=== PATIENT | female | born 1985 | race Caucasian/White ===

== ENCOUNTER 2017-07-14 15:42 | Emergency (ER) | payer SELFPAY ==
[~2017-07-14] VITALS: Ht 172.7 cm; Wt 81.8 kg
[~2017-07-14 15:42] MED LIST: BACTRIM DS 8001 TAB PO; BACTROBAN 22GM22 GM NAS; CEPHALEXIN500 M1 PO; CLEOCIN HC150 MG/CAP PO; CLEOCIN VAGINAL40 GM VG; DOXYCYCLINE 10100 MG PO; EPI EZ PEN1 MG/ML IM; FLAGYL500 MG PO; HIBICLENS TP; LORTAB 5/500 501 TAB PO; MOTRIN 600600 MG/TAB PO; NAPROSYN375 MG PO; NAPROSYN500 MG PO; NO HOME MEDICATIONS; NORCO 325 MG-51 TAB PO; NORCO 325 MG-7.1 TAB PO; NUVESSA1.3% VG; PEPCID AC 10MG10 MG; PREDNISONE10 MG PO; PRENATAL VITAMI1 TA5 PO; SPRINTEC 35 MCG1 TAB PO; WELLBUTRIN PO; ZITHROMAX Z PA250 MG PO
[2017-07-14 15:44] VITALS: BP 140/95; TEMP 98.2
[2017-07-14] MEDS ORDERED: AMOXICILLIN 8751 TAB PO (16:04)
[2017-07-14] MEDS ORDERED: ULTRAM 50MG TAB50 MG PO (16:04)
[2017-07-14 16:35] VITALS: PULSE 97
== END 2017-07-14 16:35 | disposition home or self-care (01) ==
LOC: COL.ER 15:42
DX: K04.7 Periapical abscess without sinus (principal); F17.210 Nicotine dependence, cigarettes, uncomplicated
CPT/HCPCS: J1885

== ENCOUNTER 2018-01-22 13:59 | Emergency (ER) | payer SELFPAY ==
[~2018-01-22] VITALS: Ht 172.7 cm; Wt 90.9 kg
[~2018-01-22 13:59] MED LIST changes: +AMOXICILLIN 8751 TAB PO; +ULTRAM 50MG TAB50 MG PO
[2018-01-22 14:09] VITALS: BP 135/89; PULSE 100; TEMP 97.7
== END 2018-01-22 15:55 | disposition left against medical advice (07) ==
LOC: COL.ER 13:59
DX: M25.511 Pain in right shoulder (principal)

== ENCOUNTER 2018-03-01 15:06 | Emergency (ER) | payer SELFPAY ==
[~2018-03-01] VITALS: Ht 172.7 cm; Wt 84.1 kg
[2018-03-01 15:08] VITALS: BP 144/93; TEMP 98.5
[2018-03-01 16:02] VITALS: PULSE 96
== END 2018-03-01 16:03 | disposition home or self-care (01) ==
LOC: COL.ER 15:06
DX: S93.402A Sprain of unspecified ligament of left ankle, initial encounter (principal); F17.210 Nicotine dependence, cigarettes, uncomplicated; X58.XXXA Exposure to other specified factors, initial encounter

== ENCOUNTER 2020-12-01 16:56 | Emergency (ER) | payer BC ==
[~2020-12-01] VITALS: Ht 172.7 cm; Wt 86.4 kg
[2020-12-01 17:04] VITALS: TEMP 99
[2020-12-01 18:14] LABS: COLLECTION METHOD CATHETER
[2020-12-01 18:27] LABS: BASO # 0.2 (0.0-0.2); BASO % 1.2 % (0.0-2.0); EOS % 0.3 % (0-4.0); GRAN # 11.3 (1.4-6.5); GRAN % 77.4 % (42.2-75.2); HEMATOCRIT 39.1 % (37.0-47.0); HEMOGLOBIN 12.3 g/dl (12.5-16.0); LYMPH # 1.8 (1.2-3.4); LYMPH % 12.2 % (20.0-51.0); MEAN CELL VOLUME 88 fl (80.0-100.0); MEAN CORPUSCULAR HEMOGLOBIN 28 pg (27.0-31.0); MEAN CORPUSCULAR HGB CONC 32 g/dl (33.0-37.0); MEAN PLATELET VOLUME 9.8 fl (7.4-10.4); MONO # 1.2 (0.1-0.6); MONO % 7.9 % (1.7-9.3); PLATELET COUNT 206 K/mm3 (130-400); RED BLOOD COUNT 4.46 M/mm3 (4.10-5.30)
[2020-12-01 18:31] LABS: ALBUMIN 4.5 gm/dL (3.5-5.0); CALCIUM 9.1 mg/dL (8.4-10.2); CREATININE, serum 0.73 (0.52-1.25); POTASSIUM 3.3 mmol/L (3.4-5.0); TOTAL PROTEIN 9.9 gm/dL (6.4-8.2)
[2020-12-01 18:36] LABS: MUCOUS Present /lpf; PH 6 (5-8); SQUAMOUS EPITHELIAL 0-2 /hpf; URINE APPEARANCE Hazy; URINE BACTERIA Rare /hpf; URINE BILIRUBIN Negative (NEGATIVE); URINE BLOOD 1+ (NEGATIVE); URINE COLOR Amber; URINE GLUCOSE Negative (NEGATIVE); URINE KETONE Negative (NEGATIVE); URINE LEUKOCYTE ESTERASE Negative (NEGATIVE); URINE NITRATE Negative (NEGATIVE); URINE PROTEIN(semi-quant) 2+ (NEGATIVE); URINE RBC 20-50 /hpf; URINE UROBILINOGEN >=4.0 mg/dL (NEGATIVE)
[2020-12-01] MEDS ORDERED: LIBRIUM 25M25 MG/CAP PO (19:54)
[2020-12-01] MEDS ORDERED: CEPHALEXIN500 M1 PO (19:56)
[2020-12-01 20:23] VITALS: BP 133/98; PULSE 117
--- NOTE | 2020-12-03 10:49 | NUR ---
pitch worker left message for patient to call regarding obtaining substance abuse treatment/detox options.
== END 2020-12-01 20:42 | disposition home or self-care (01) ==
LOC: COL.ER 16:56
PROVIDERS: Physician Assistant
DX: F10.129 Alcohol abuse with intoxication, unspecified (principal); L03.90 Cellulitis, unspecified
CPT/HCPCS: J2060; J7030

== ENCOUNTER 2020-12-03 18:31 | Inpatient (IN) | payer BC ==
[~2020-12-03] VITALS: Ht 172.7 cm; Wt 85.9 kg
[~2020-12-03 18:31] MED LIST changes: +LIBRIUM 25M25 MG/CAP PO
[2020-12-03 20:26] LABS: BASO # 0.1 (0.0-0.2); BASO % 0.9 % (0.0-2.0); EOS % 0.2 % (0-4.0); GRAN # 8.1 (1.4-6.5); GRAN % 74.5 % (42.2-75.2); HEMOGLOBIN 10.7 g/dl (12.5-16.0); LYMPH # 1.5 (1.2-3.4); LYMPH % 13.4 % (20.0-51.0); MEAN CELL VOLUME 85 fl (80.0-100.0); MEAN CORPUSCULAR HEMOGLOBIN 28 pg (27.0-31.0); MEAN CORPUSCULAR HGB CONC 33 g/dl (33.0-37.0); MEAN PLATELET VOLUME 9.8 fl (7.4-10.4); MONO # 1.1 (0.1-0.6); MONO % 10.4 % (1.7-9.3); PLATELET COUNT 114 K/mm3 (130-400); RED BLOOD COUNT 3.83 M/mm3 (4.10-5.30); REDCELL DISTRIBUTION WIDTH-CV 16.5 % (11.5-14.5)
[2020-12-03 20:28] LABS: HEMATOCRIT 32.5 % (37.0-47.0)
[2020-12-03 20:49] LABS: ALBUMIN 4.1 gm/dL (3.5-5.0); BILIRUBIN,TOTAL 2.6 mg/dL (0.0-1.0); CREATININE, serum 0.67 (0.52-1.25); MAGNESIUM 1.5 mg/dL (1.6-2.3); TOTAL PROTEIN 8.6 gm/dL (6.4-8.2)
[2020-12-03 20:51] LABS: POTASSIUM 2.7 mmol/L (3.4-5.0)
[2020-12-03 21:12] LABS: ARTERIAL BLD GAS O2 SATURATION 95.6 % (92-100); ARTERIAL BLD GAS TCO2 CT 30.3; ARTERIAL BLOOD GAS BASE EXCESS 5.9 (-2-2); ARTERIAL BLOOD GAS HCO3 29.2 meq/L (22-26); ARTERIAL BLOOD GAS PCO2 37.2 mmHg (35-45); ARTERIAL BLOOD GAS PO2 73.5 mmHg (80-100); ARTERIAL BLOOD GAS pH 7.51 (7.35-7.45)
[2020-12-04] VITALS (8 sets, daily range): BP systolic 110–143; BP diastolic 64–87; PULSE 108–118; TEMP 98.1–98.8
[2020-12-04 02:01] LABS: CALCIUM 8.1 mg/dL (8.4-10.2); CREATININE, serum 0.62 (0.52-1.25); MAGNESIUM 2.2 mg/dL (1.6-2.3); POTASSIUM 3.1 mmol/L (3.4-5.0)
[2020-12-04 07:38] LABS: BASO # 0.1 (0.0-0.2); EOS # 0.1 (0.0-0.7); EOS % 1.2 % (0-4.0); GRAN # 6.4 (1.4-6.5); HEMOGLOBIN 10.2 g/dl (12.5-16.0); LYMPH # 1.6 (1.2-3.4); MEAN CELL VOLUME 89 fl (80.0-100.0); MEAN CORPUSCULAR HEMOGLOBIN 27 pg (27.0-31.0); MEAN CORPUSCULAR HGB CONC 30 g/dl (33.0-37.0); MEAN PLATELET VOLUME 10.8 fl (7.4-10.4); MONO # 0.8 (0.1-0.6); MONO % 9.2 % (1.7-9.3); PLATELET COUNT 108 K/mm3 (130-400); RED BLOOD COUNT 3.75 M/mm3 (4.10-5.30); REDCELL DISTRIBUTION WIDTH-CV 16.9 % (11.5-14.5)
[2020-12-04 07:39] LABS: HEMATOCRIT 33.5 % (37.0-47.0)
[2020-12-04 07:46] LABS: CREATININE, serum 0.64 (0.52-1.25); POTASSIUM 3.1 mmol/L (3.4-5.0)
[2020-12-04 08:22] LABS: INR 1.5 (0.8-3.0); PROTHROMBIN TIME 16.3 SECONDS (9.7-12.8)
[2020-12-04 08:25] LABS: ALBUMIN 3.4 gm/dL (3.5-5.0); BILIRUBIN UNCONJUGATED 1.5 mg/dL (0.0-1.1); BILIRUBIN,DIRECT 1.3 mg/dL (0.0-0.4); BILIRUBIN,TOTAL 2.8 mg/dL (0.0-1.0); TOTAL PROTEIN 7.6 gm/dL (6.4-8.2)
[2020-12-04 15:49] LABS: FOLATE (FOLIC ACID) 15.7 ng/mL (7.0-31.4)
[2020-12-04] MEDS ORDERED: BENADRYL25 M2 PO (16:05)
[2020-12-04] MEDS ORDERED: MAG-OX 400400 MG/TAB PO (16:07)
[2020-12-04] MEDS ORDERED: PROTONIX 40MG T40 MG PO (16:08)
[2020-12-04] MEDS ORDERED: ANTI-FUNGAL1% TP (16:09)
[2020-12-04] MEDS ORDERED: LIBRIUM 25M25 MG/CAP PO (16:16)
[2020-12-05 00:43] VITALS: BP 120/78; PULSE 104; TEMP 98.7
[2020-12-05 05:27] VITALS: BP 137/92; PULSE 108; PULSE 117; TEMP 98.9
[2020-12-05 07:02] VITALS: BP 129/89; PULSE 114; TEMP 98.2
[2020-12-05 07:37] LABS: BASO # 0.1 (0.0-0.2); BASO % 1.2 % (0.0-2.0); EOS # 0.2 (0.0-0.7); EOS % 2.6 % (0-4.0); GRAN # 5.8 (1.4-6.5); GRAN % 68.7 % (42.2-75.2); HEMOGLOBIN 10.5 g/dl (12.5-16.0); LYMPH # 1.4 (1.2-3.4); LYMPH % 15.9 % (20.0-51.0); MEAN CELL VOLUME 89 fl (80.0-100.0); MEAN CORPUSCULAR HEMOGLOBIN 27 pg (27.0-31.0); MEAN CORPUSCULAR HGB CONC 31 g/dl (33.0-37.0); MEAN PLATELET VOLUME 10.1 fl (7.4-10.4); MONO # 0.9 (0.1-0.6); MONO % 10.7 % (1.7-9.3); PLATELET COUNT 112 K/mm3 (130-400); RED BLOOD COUNT 3.86 M/mm3 (4.10-5.30); REDCELL DISTRIBUTION WIDTH-CV 16.9 % (11.5-14.5)
[2020-12-05 07:59] LABS: IRON,SERUM 45 ug/dL (35-150)
[2020-12-05 08:00] LABS: HEMATOCRIT 34.3 % (37.0-47.0)
[2020-12-05 08:09] LABS: TOTAL IRON BINDING CAPACITY 341 ug/dL (265-497)
[2020-12-05 08:48] LABS: ALBUMIN 3.5 gm/dL (3.5-5.0); BILIRUBIN,TOTAL 3.4 mg/dL (0.0-1.0); CALCIUM 8.5 mg/dL (8.4-10.2); CREATININE, serum 0.67 (0.52-1.25); MAGNESIUM 2.1 mg/dL (1.6-2.3); POTASSIUM 3.8 mmol/L (3.4-5.0); TOTAL PROTEIN 7.7 gm/dL (6.4-8.2)
[2020-12-06 04:30] LABS: CERULOPLASMIN 35 mg/dL (20-60)
[2020-12-06 12:12] LABS: ANA SCREEN with REFLEX Negative (Negative)
[2020-12-08 13:47] LABS: ANTISMOOTH MUSCLE ANTIBODY Negative (Negative)
== END 2020-12-05 08:50 | DRG 897 ==
LOC: COL.ER 18:31 → SURG 22:25
PROVIDERS: Emergency Medicine; Internal Medicine Gastroenterology; Physician Assistant; Student in an Organized Health Care Education/Training Program; ADMIT Hospitalist
DX: F10.139 Alcohol abuse with withdrawal, unspecified (principal); K92.1 Melena; E87.2 Acidosis; L03.116 Cellulitis of left lower limb; L03.115 Cellulitis of right lower limb; F17.210 Nicotine dependence, cigarettes, uncomplicated; E87.6 Hypokalemia; E83.42 Hypomagnesemia; R00.0 Tachycardia, unspecified; D64.9 Anemia, unspecified; K70.10 Alcoholic hepatitis without ascites; K70.30 Alcoholic cirrhosis of liver without ascites; R19.7 Diarrhea, unspecified; K21.9 Gastro-esophageal reflux disease without esophagitis; L29.9 Pruritus, unspecified; D69.6 Thrombocytopenia, unspecified; Z20.822 Contact with and (suspected) exposure to COVID-19
CPT/HCPCS: 99223-AI; 99233-AI; 99239; C9113; J2060; J2405; J2543; J2550; J3370; J3475; J3480; J7030; J7050

== ENCOUNTER 2020-12-31 17:58 | Emergency (ER) | payer BC ==
[~2020-12-31] VITALS: Ht 172.7 cm; Wt 80.0 kg
[~2020-12-31 17:58] MED LIST changes: +ANTI-FUNGAL1% TP; +BENADRYL25 M2 PO; +MAG-OX 400400 MG/TAB PO; +PROTONIX 40MG T40 MG PO
[2020-12-31 18:12] VITALS: TEMP 98.7
[2020-12-31 19:17] LABS: BASO % 0.5 % (0.0-2.0); EOS # 0.1 (0.0-0.7); EOS % 0.8 % (0-4.0); GRAN # 3.7 (1.4-6.5); GRAN % 56.5 % (42.2-75.2); HEMOGLOBIN 11.1 g/dl (12.5-16.0); LYMPH % 30.5 % (20.0-51.0); MEAN CELL VOLUME 86 fl (80.0-100.0); MEAN CORPUSCULAR HEMOGLOBIN 27 pg (27.0-31.0); MEAN CORPUSCULAR HGB CONC 31 g/dl (33.0-37.0); MEAN PLATELET VOLUME 10.6 fl (7.4-10.4); MONO # 0.8 (0.1-0.6); MONO % 11.5 % (1.7-9.3); PLATELET COUNT 192 K/mm3 (130-400); RED BLOOD COUNT 4.17 M/mm3 (4.10-5.30); REDCELL DISTRIBUTION WIDTH-CV 16.9 % (11.5-14.5)
[2020-12-31 19:19] LABS: ALANINE AMINOTRANSFERASE 44 U/L (4-34); ALBUMIN 3.7 gm/dL (3.5-5.0); ALKALINE PHOSPHATASE 161 U/L (50-136); ANION GAP 10 mmol/L (7-16); AST,SGOT 82 U/L (15-37); BILIRUBIN,TOTAL 1.1 mg/dL (0.0-1.0); BLOOD UREA NITROGEN 9 mg/dL (7-17); CALCIUM 8.3 mg/dL (8.4-10.2); CARBON DIOXIDE 22 mmol/L (22-30); CHLORIDE 104 mmol/L (98-107); CREATININE, serum 0.64 (0.52-1.25); GLUCOSE 102 mg/dL (74-106); POTASSIUM 3.8 mmol/L (3.4-5.0); SODIUM 137 mmol/L (137-145)
[2020-12-31 19:38] LABS: TROPONIN-I < 0.012 ng/mL (0.000-0.035)
[2020-12-31] MEDS ORDERED: MEDROL 4MG DOSPA4 MG PO (19:59)
[2020-12-31 20:48] VITALS: BP 122/83; PULSE 92
== END 2020-12-31 20:50 | disposition home or self-care (01) ==
LOC: COL.ER 17:58
PROVIDERS: Physician Assistant
DX: U07.1 COVID-19 (principal); J12.82 Pneumonia due to coronavirus disease 2019; F17.210 Nicotine dependence, cigarettes, uncomplicated
CPT/HCPCS: J1885; J7030

== ENCOUNTER 2021-08-07 11:03 | Emergency (ER) | payer SELFPAY ==
[~2021-08-07] VITALS: Ht 172.7 cm; Wt 81.4 kg
[~2021-08-07 11:03] MED LIST changes: +MEDROL 4MG DOSPA4 MG PO
[2021-08-07 11:20] VITALS: TEMP 98.5
[2021-08-07 12:30] LABS: BASO # 0.2 K/mm3 (0.0-0.2); BASO % 2.1 % (0.0-2.0); EOS # 0.1 K/mm3 (0.0-0.7); EOS % 1.4 % (0-4.0); GRAN # 5.2 K/mm3 (1.4-6.5); GRAN % 65.3 % (42.2-75.2); HEMATOCRIT 32.2 % (37.0-47.0); HEMOGLOBIN 10.6 g/dl (12.5-16.0); LYMPH # 1.4 K/mm3 (1.2-3.4); LYMPH % 17.6 % (20.0-51.0); MEAN CELL VOLUME 83 fl (80.0-100.0); MEAN CORPUSCULAR HEMOGLOBIN 27 pg (27.0-31.0); MEAN CORPUSCULAR HGB CONC 33 g/dl (33.0-37.0); MEAN PLATELET VOLUME 9.6 fl (7.4-10.4); MONO % 12.8 % (1.7-9.3); PLATELET COUNT 111 K/mm3 (130-400); RED BLOOD COUNT 3.87 M/mm3 (4.10-5.30); REDCELL DISTRIBUTION WIDTH-CV 21.5 % (11.5-14.5)
[2021-08-07 12:33] LABS: COLLECTION METHOD CLEAN CATCH
[2021-08-07 12:40] LABS: ALBUMIN 2.7 gm/dL (3.5-5.0); CREATININE, serum 0.84 mg/dL (0.57-1.11); TOTAL PROTEIN 9.3 gm/dL (6.2-8.1)
[2021-08-07 12:43] LABS: MUCOUS Present /lpf; PH 5 (5-8); URINE APPEARANCE Cloudy; URINE BACTERIA Rare /hpf; URINE BILIRUBIN Positive (NEGATIVE); URINE BLOOD 2+ (NEGATIVE); URINE COLOR Amber; URINE GLUCOSE Negative (NEGATIVE); URINE KETONE Negative (NEGATIVE); URINE LEUKOCYTE ESTERASE 1+ (NEGATIVE); URINE NITRATE Negative (NEGATIVE); URINE PROTEIN(semi-quant) 1+ (NEGATIVE); URINE UROBILINOGEN >=4.0 mg/dL (NEGATIVE)
[2021-08-07 12:47] LABS: TRICYCLIC ANTIDEPRESS URINE NEGATIVE
[2021-08-07 13:32] VITALS: BP 104/64
[2021-08-07] MEDS ORDERED: ZOFRAN ODT8 MG PO (14:22)
[2021-08-07] MEDS ORDERED: OMNICEF 300MG300 MG PO (14:29)
[2021-08-07 14:45] VITALS: PULSE 84
== END 2021-08-07 14:45 | disposition home or self-care (01) ==
LOC: COL.ER 11:03
PROVIDERS: Nurse Practitioner Family
DX: F10.229 Alcohol dependence with intoxication, unspecified (principal); R73.9 Hyperglycemia, unspecified; E87.6 Hypokalemia; N39.0 Urinary tract infection, site not specified; R63.4 Abnormal weight loss; R74.01 Elevation of levels of liver transaminase levels; F17.200 Nicotine dependence, unspecified, uncomplicated; Z86.16 Personal history of COVID-19
CPT/HCPCS: J2405; J7030

== ENCOUNTER 2021-09-09 15:52 | Emergency (ER) | payer SELFPAY ==
[~2021-09-09] VITALS: Ht 172.7 cm; Wt 90.9 kg
[~2021-09-09 15:52] MED LIST changes: +OMNICEF 300MG300 MG PO; +ZOFRAN ODT8 MG PO
[2021-09-09 16:01] VITALS: BP 152/80; PULSE 101; TEMP 97.9
[2021-10-17] MEDS ORDERED: NATURE'S BLEND100 M2 PO (13:29)
[2021-10-17] MEDS ORDERED: COLACE 100100 MG/CAP PO (13:30)
[2021-10-17] MEDS ORDERED: ACTIGALL 300MG300 MG PO (13:32)
[2021-10-17] MEDS ORDERED: MULTI VITAMINS1 TAB PO (13:33)
== END 2021-09-09 17:26 | disposition left against medical advice (07) ==
LOC: COL.ER 15:52
DX: R53.81 Other malaise (principal)

== ENCOUNTER 2021-09-10 11:34 | Inpatient (IN) | payer SELFPAY ==
[~2021-09-10] VITALS: Ht 172.7 cm; Wt 88.8 kg
[2021-09-10 12:11] LABS: BASO # 0.1 K/mm3 (0.0-0.2); BASO % 1.2 % (0.0-2.0); EOS # 0.1 K/mm3 (0.0-0.7); GRAN # 9.6 K/mm3 (1.4-6.5); GRAN % 80.7 % (42.2-75.2); LYMPH # 0.5 K/mm3 (1.2-3.4); LYMPH % 4.5 % (20.0-51.0); MEAN CELL VOLUME 89 fl (80.0-100.0); MEAN CORPUSCULAR HGB CONC 32 g/dl (33.0-37.0); MEAN PLATELET VOLUME 9.5 fl (7.4-10.4); MONO # 1.3 K/mm3 (0.1-0.6); MONO % 11.3 % (1.7-9.3); PLATELET COUNT 272 K/mm3 (130-400); RED BLOOD COUNT 3.42 M/mm3 (4.10-5.30); REDCELL DISTRIBUTION WIDTH-CV 21.1 % (11.5-14.5)
[2021-09-10 12:16] LABS: HEMATOCRIT 30.5 % (37.0-47.0); HEMOGLOBIN 9.7 g/dl (12.5-16.0); MEAN CORPUSCULAR HEMOGLOBIN 28 pg (27.0-31.0)
[2021-09-10 12:20] LABS: PROTHROMBIN TIME 22.1 SECONDS (9.7-12.8)
[2021-09-10 12:50] LABS: ALBUMIN 1.8 gm/dL (3.5-5.0); CREATININE, serum 2.62 mg/dL (0.57-1.11); MAGNESIUM 2.2 mg/dL (1.6-2.6); TOTAL PROTEIN 7.5 gm/dL (6.2-8.1)
[2021-09-10 12:51] LABS: CALCIUM 8.3 mg/dL (8.4-10.2)
[2021-09-10 12:52] LABS: BILIRUBIN,TOTAL 34.6 mg/dL (0.2-1.2); TROPONIN-I 0.026 ng/mL (0.00-0.033)
[2021-09-10 20:29] VITALS: BP 106/72; PULSE 93; TEMP 98.4
--- NOTE | 2021-09-10 20:30 | NUR ---
Patient to room 314 by bed from the ED. A&Ox4. VSS. IV CDI, fluids infusing. Reports pain all over body, more in the back. Pain medication requested. Nurse will call the PA for additional orders. Nurse oriented the patient to location, room and call light. Nurse provided water and ice. Call light within reach
--- NOTE | 2021-09-10 23:43 | NUR ---
Bed side-report received from MIGUEL A Larsen at 11 pm. Patient resting in bed with eyes closed at this time. Patient easily awake with voice. Patient alert and oriented. Patient reports moderate pain to her abdomen area. Will give PRN Morphine for pain. Abdomen distended. Patient denies N/V. K+ level 3.0 today. Potassium 20 meq tab given in apple juice. Will check potassium level after 3 hours of giving potassium and replace potassium per protocol. Call light in reach. Will continue to monitor.
[2021-09-11 00:55] VITALS: BP 120/77; PULSE 94; TEMP 98.7
[2021-09-11 04:36] VITALS: BP 104/72; PULSE 89; TEMP 97.8
--- NOTE | 2021-09-11 06:12 | NUR ---
Potassium level up to 3.4 at 02:36 am this morning. Replaced potassium per protocol. NPO maintained from midnight. Call light in reach.
[2021-09-11 06:20] LABS: COLLECTION METHOD CLEAN CATCH
[2021-09-11 06:40] LABS: MUCOUS Present (NOT PRESENT); PH 5 (5-8); URINE APPEARANCE Cloudy (CLEAR/HAZY); URINE BACTERIA Occasional (NONE SEEN); URINE BILIRUBIN Positive (NEGATIVE); URINE BLOOD Negative (NEGATIVE); URINE COLOR Amber (YELLOW); URINE GLUCOSE Negative (NEGATIVE); URINE KETONE Negative (NEGATIVE); URINE LEUKOCYTE ESTERASE Negative (NEGATIVE); URINE NITRATE Negative (NEGATIVE); URINE PROTEIN(semi-quant) Negative (NEGATIVE); URINE RBC 0-2 /hpf (0-2); URINE UROBILINOGEN >=4.0 mg/dL (NEGATIVE)
--- NOTE | 2021-09-11 07:00 | NUR ---
Report received from MIGUEL A Rollins. PT in bed resting, denies needs, will continue to monitor.
[2021-09-11 07:47] VITALS: BP 112/78; BP 149/78; PULSE 81; PULSE 93; TEMP 98.2; TEMP 99.5
[2021-09-11 08:04] LABS: INR 1.9 (0.8-3.0); PROTHROMBIN TIME 20.7 SECONDS (9.7-12.8)
[2021-09-11 08:17] LABS: MEAN CELL VOLUME 89 fl (80.0-100.0); MEAN CORPUSCULAR HGB CONC 32 g/dl (33.0-37.0); MEAN PLATELET VOLUME 10.2 fl (7.4-10.4); PLATELET COUNT 244 K/mm3 (130-400); RED BLOOD COUNT 3.21 M/mm3 (4.10-5.30); REDCELL DISTRIBUTION WIDTH-CV 20.7 % (11.5-14.5); RETIC # 0.07 M/mm3 (0.02-0.16); RETIC % 2.3 % (0.5-3.52)
[2021-09-11 08:19] LABS: HEMATOCRIT 28.7 % (37.0-47.0); HEMOGLOBIN 9.3 g/dl (12.5-16.0); MEAN CORPUSCULAR HEMOGLOBIN 29 pg (27-31)
[2021-09-11 08:33] LABS: ALBUMIN 1.7 gm/dL (3.5-5.0); CALCIUM 8.6 mg/dL (8.4-10.2); CREATININE, serum 2.6 mg/dL (0.57-1.11); POTASSIUM 3.6 mmol/L (3.5-4.5); TOTAL PROTEIN 7.2 gm/dL (6.2-8.1)
[2021-09-11 08:50] LABS: BILIRUBIN,TOTAL 29.1 mg/dL (0.2-1.2)
--- NOTE | 2021-09-11 09:00 | NUR ---
Assessment charted. Pt in bed resting, found in room after returning from Paracentesis. Per report called output was 4850mls. Resting with pain at 6/10, PRN pain meds given. Pt is very jaundiced with sclera extremely yellow. alert and oriented. Will ocntinue to monitor.
[2021-09-11 09:04] LABS: BILIRUBIN,DIRECT 26.3 mg/dL (0.0-0.5)
[2021-09-11 09:25] LABS: PERITONEAL -POLYMORPHONUCLEAR 11.5 % (0-25)
[2021-09-11 10:01] LABS: ANISOCYTOSIS 2+; BAND 18 % (0-10); LYMPHOCYTE 3 % (20.0-51.0); NEUTROPHILS 76 % (42.0-75.2); PLATELET ESTIMATE NORMAL (NORMAL)
[2021-09-11 12:22] VITALS: BP 102/68; PULSE 96; TEMP 98.6
--- NOTE | 2021-09-11 13:03 | NUR ---
Report given to Martha GRADY who will resume care
--- NOTE | 2021-09-11 13:30 | NUR ---
took over cares from MIGUEL A Killian. pt johny, aox4, denies pain at this time, albumin infusing and pt educated on purpose of albumin
--- NOTE | 2021-09-11 15:01 | NUR ---
powder worker attempted to meet with patient who states that she would like me to come back later. Attempted to meet with patient again who states that she "doesn't have it in me" to talk today and would like to talk tomorrow.
--- NOTE | 2021-09-11 16:05 | NUR ---
PT IN HALLWAY WITH O2 AND IV DRIP INFUSING.
--- NOTE | 2021-09-11 16:31 | NUR ---
PT ASSISTED INTO BATHROOM, ASSISTED BACK INTO ROOM AFTER TORNADO WARNING, ATTACHED TO OXYGEN
[2021-09-11 17:04] VITALS: BP 109/74; PULSE 96; TEMP 97.5
--- NOTE | 2021-09-11 18:04 | NUR ---
PT UPSET ABOUT RETURNING FLUID AND HARD ABD, MEDICATIONS GIVEN FOR PAIN, FLUIDS INFUSING PER ORDER, PT AOX4, SLIGHT TREMOR TO HANDS, NO OTHER S/S OF DETOX, NO OTHER NEEDS
--- NOTE | 2021-09-11 20:00 | NUR ---
PATIENT IS A&O. VSS ON TELE. NOTED TACHYCARDIA IN LOW 100'S. HEART SOUNDS REGULAR. 02 @ 2.5L TO KEEP SATS ABOVE 92%. 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 PATIENT IS VERY JAUNDICE. NOTED BLE EDEMA WITH +1 PEDAL PULSES. ABD IS DISTENDED, FIRM AND REQUIRED PARACENTESIS TODAY WHERE 5L WAS REMOVED, PER DAY SHIFT REPORT. BANDAID TO ABD IS CD&I. IV FLUIDS INFUSING VIA PUMP INTO LEFT AC IV PER ORDERS. HEAD TO TWO ASSESSMENT COMPLETE. SKIN ISSUES NOTED, SEE CHARTING. OLD DRIED BLOOD ON PATIENT'S GOWN CAME FROM SORES THAT SHE WAS ITCHING ALL OVER HER NECK/CHEST/UPPER ARMS, CHANGED GOWN. PATIENT REPORTS TOLERABLE DISCOMFORT BUT STATES SHE FEELS ANXIOUS. GAVE PRN ATIVAN. PATIENT NOW RESTING UP IN BED TO COMFORT. EVENING MEDS GIVEN. NO OTHER NEEDS AT THIS TIME. CALL LIGHT IN REACH.
[2021-09-11 20:13] VITALS: BP 114/74; PULSE 102; TEMP 98.3
[2021-09-12] VITALS (12 sets, daily range): BP systolic 109–135; BP diastolic 64–92; PULSE 90–116; TEMP 97.2–99.1
--- NOTE | 2021-09-12 05:55 | NUR ---
Patient's IV got pulled out accidentally while she trying to get up from bed. Inserted new IV to her left forearm. PRN Morphine given per patient request for moderate abdominal discomfort. Patient scores 1-3 on CIWA protocol over the night. No acute distress noted. Call light in reach.
[2021-09-12 06:24] LABS: MEAN CELL VOLUME 88 fl (80.0-100.0); MEAN CORPUSCULAR HGB CONC 33 g/dl (33.0-37.0); MEAN PLATELET VOLUME 9.6 fl (7.4-10.4); PLATELET COUNT 258 K/mm3 (130-400); RED BLOOD COUNT 3.35 M/mm3 (4.10-5.30); REDCELL DISTRIBUTION WIDTH-CV 20.6 % (11.5-14.5)
[2021-09-12 06:30] LABS: HEMATOCRIT 29.5 % (37.0-47.0); HEMOGLOBIN 9.7 g/dl (12.5-16.0); MEAN CORPUSCULAR HEMOGLOBIN 29 pg (27-31)
[2021-09-12 06:46] LABS: ALBUMIN 2.1 gm/dL (3.5-5.0); CALCIUM 8.6 mg/dL (8.4-10.2); CREATININE, serum 2.06 mg/dL (0.57-1.11); TOTAL PROTEIN 6.9 gm/dL (6.2-8.1)
[2021-09-12 06:48] LABS: PROTHROMBIN TIME 22.2 SECONDS (9.7-12.8)
[2021-09-12 06:58] LABS: BILIRUBIN,TOTAL 28.3 mg/dL (0.2-1.2); POTASSIUM 2.9 mmol/L (3.5-4.5)
[2021-09-12 07:57] LABS: ANISOCYTOSIS 2+; BAND 1 % (0-10); LYMPHOCYTE 9 % (20.0-51.0); NEUTROPHILS 82 % (42.0-75.2); PLATELET ESTIMATE NORMAL (NORMAL); TARGET CELLS 1+
--- NOTE | 2021-09-12 11:45 | NUR ---
Patient laying in bed upon entering the room. On contact precautions for hx of MRSA. Patient does not have any complaints, is concerned about lack of BMs recently; Stated this was before she was admitted as well. Angely notified.
--- NOTE | 2021-09-12 20:45 | NUR ---
Initial shift assessment done- states has pain to abdomen and back 03/07--is due for pain meds at [facility]- pt states thats fine, up in room, steady on feet, jaundiced, lower extremity edema, abd rounded,firm. on CIWA protocol- scoring 3 at this time- no meds given per protocol at this time.
[2021-09-13] VITALS (12 sets, daily range): BP systolic 114–134; BP diastolic 67–103; PULSE 69–113; TEMP 97.7–98.7
--- NOTE | 2021-09-13 00:15 | NUR ---
o2 sats 87-88 % on room air-- will put back on her o2 at 2L/nc,, given oxycodone for abd /back pain 03/07,, also atarax given for itching/sleep
--- NOTE | 2021-09-13 06:18 | NUR ---
Quiet night, scored 2-3 on CIWA during the night-no ativan given this shift. VSS. Taking oxycodone for abd/back pain. Has been sleeping well for the past 3-4 hours.
[2021-09-13 06:20] LABS: MEAN CELL VOLUME 92 fl (80.0-100.0); MEAN CORPUSCULAR HGB CONC 32 g/dl (33.0-37.0); MEAN PLATELET VOLUME 9.8 fl (7.4-10.4); PLATELET COUNT 231 K/mm3 (130-400); RED BLOOD COUNT 3.04 M/mm3 (4.10-5.30)
[2021-09-13 06:29] LABS: HEMATOCRIT 27.9 % (37.0-47.0); HEMOGLOBIN 8.9 g/dl (12.5-16.0); MEAN CORPUSCULAR HEMOGLOBIN 29 pg (27-31)
[2021-09-13 06:33] LABS: INR 1.8 (0.8-3.0); PROTHROMBIN TIME 19.5 SECONDS (9.7-12.8)
[2021-09-13 06:38] LABS: BILIRUBIN,TOTAL 24.2 mg/dL (0.2-1.2); CALCIUM 8.2 mg/dL (8.4-10.2); CREATININE, serum 1.68 mg/dL (0.57-1.11); TOTAL PROTEIN 6.4 gm/dL (6.2-8.1)
[2021-09-13 07:00] LABS: POTASSIUM 2.7 mmol/L (3.5-4.5)
--- NOTE | 2021-09-13 07:56 | NUR ---
Pt doing ok, having abd pain complaints, PRN pain medication given. Pt was itching in room during assessment. Offered PRN which she stated she would like. Pt reported that she feels hungry all the time and feels as if she is always eating. Pt reported that she did get some sleep last night. No other needs verbalized, call light within reach
[2021-09-13 07:58] LABS: BAND 17 % (0-10); LYMPHOCYTE 4 % (20.0-51.0); METAMYELOCYTE 1 % (0-0); NEUTROPHILS 72 % (42.0-75.2); PLATELET ESTIMATE NORMAL (NORMAL); TARGET CELLS 2+
--- NOTE | 2021-09-13 09:00 | NUR ---
Pt reported that the pain medication did not help very much stated that her itching is bad. PRN given at this time. Pt is having some tremors, otherwise not scoring with the ETOH protocol. Pt denies any other needs. Did discuss the potassium protocol with HERB Corona. Mentioned that she does have Potassium scheduled and was not sure if they were wanting her on protocol in addition to that. Will hold off on ordering additional potassium for right not.
--- NOTE | 2021-09-13 11:08 | NUR ---
SW attended clinical rounds. The patient is to remain here through the weekend. She is at risk of liver failure. The clinical team attempted to transfer the patient, but there are no beds to transfer her to. The hospitalist discussed the importance of abstaining from alcohol upon discharge and the risks if she did not. SW then followed up with the patient to discuss discharge plan. The patient lives alone in [place]. She reports independence with ADLs and does not have any DME. The patient states that she had just been set up with a female provider at [facility] and has seen her once so far. She could not recall the provider's name. SW contacted Cecile, social secretary, at [facility] and confirmed that the patient was established with Dr. Yani Maguire there. The patient receives her medications at [facility] and [facility]. She reports that affording anything right now is a difficulty. She confirms that she is self pay. SW consulted Financial Counseling. 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 She is trying to find a new job. The patient reports that she is at risk of losing her house she rents. SW informed her of [employer] and how they can assist with rent and utilities. The patient reports that she is familiar with [employer] and has utilized them. The patient does not have a DPOA-HC and she was not interested in completing a DPOA-HC while here. She states that she is not and that she has one child that is [id number]. She states that she does not have custody of him. The patient reports that her mother, Christi Vang (ph#[phone]), is her next of kin. Her step-father, Slade (ph#[phone]), is also involved. She reports that she does not have a relationship with her biological father. The patient plans on returning home upon discharge. The patient has a history of alcohol use. The patient reports that this has been an issue for her for 20 so years. The patient reports that she has been to inpatient rehab and that she had come up with a treatment plan with them. She reports that she lives by [facility] and her job was by a liquor store and those were temptations. The patient reports that she has no desire to drink and does not plan on drinking anymore, due to the severity of her medical condition. LAMINE informed her of local outpatient and AA meetings. The patient reports that she does not have a vehicle, but she was interested in getting a list of of local resources. LAMINE provided the patient with [facility] Resoure Guide and a list of alcohol resources in and around the [facility]. The patient had no other questions or concerns for LAMINE at this time. LAMINE to continue to monitor. The patient will likely need a med voucher upon discharge. *Discharge plan: home*
--- NOTE | 2021-09-13 12:07 | NUR ---
Pt resting with eyes closed, even non labored breathing
--- NOTE | 2021-09-13 13:05 | NUR ---
Woke pt for medications. Pt stated that her pain is still 6/10. She stated the oral pain medication really doesn't help, just helps take the edge off a little. Informed her that I would see if there was something else I could give her. No other needs verbalized, she stated she will call and order some lunch.
[2021-09-14] VITALS (13 sets, daily range): BP systolic 117–147; BP diastolic 69–83; PULSE 85–118; TEMP 97.8–98.4
--- NOTE | 2021-09-14 00:47 | NUR ---
Patient alert and oriented. Patient reports pain to her abodmen area 03/07. Abodmen firm and distended. Patient denies N/V or SOB. PRN oxycodone given per NOV. All scheduled meds given per NOV. Call light in reach. Will continue to monitor.
[2021-09-14 07:51] LABS: INR 1.8 (0.8-3.0); PROTHROMBIN TIME 19.5 SECONDS (9.7-12.8)
[2021-09-14 08:02] LABS: ALBUMIN 1.9 gm/dL (3.5-5.0); CALCIUM 8.2 mg/dL (8.4-10.2); CREATININE, serum 1.34 mg/dL (0.57-1.11); POTASSIUM 4.2 mmol/L (3.5-4.5); TOTAL PROTEIN 6.4 gm/dL (6.2-8.1)
[2021-09-14 08:03] LABS: BILIRUBIN,TOTAL 25.9 mg/dL (0.2-1.2)
[2021-09-14 08:21] LABS: MEAN CELL VOLUME 91 fl (80.0-100.0); MEAN CORPUSCULAR HGB CONC 32 g/dl (33.0-37.0); MEAN PLATELET VOLUME 10.1 fl (7.4-10.4); PLATELET COUNT 219 K/mm3 (130-400); RED BLOOD COUNT 3.02 M/mm3 (4.10-5.30); REDCELL DISTRIBUTION WIDTH-CV 20.7 % (11.5-14.5)
[2021-09-14 08:22] LABS: HEMATOCRIT 27.5 % (37.0-47.0); HEMOGLOBIN 8.8 g/dl (12.5-16.0); MEAN CORPUSCULAR HEMOGLOBIN 29 pg (27-31)
--- NOTE | 2021-09-14 09:15 | NUR ---
Pt sitting up in bed upon entering. Did wake her, but she was sitting up with movie playing on phone. Pt reported that she is feeling distended from fluid. She does report that the miralax is helping. No other needs verbalized, call light within reach.
[2021-09-14 11:29] LABS: BAND 2 % (0-10); LYMPHOCYTE 4 % (20.0-51.0); METAMYELOCYTE 1 % (0-0); NEUTROPHILS 75 % (42.0-75.2)
[2021-09-14 11:30] LABS: ANISOCYTOSIS 2+; HYPOCHROMIA 1+; PLATELET ESTIMATE NORMAL (NORMAL); TOXIC GRANULATION PRESENT
[2021-09-14 11:31] LABS: TARGET CELLS 1+
--- NOTE | 2021-09-14 19:07 | NUR ---
Pt has slept off and on today. Pt reported that the atarax did not help, had it switched to benadryl, which was recently given as well as pain medication. Pt abd continues to be distended and firm, pt hoping for paracentesis. Pt is independent in her room.
--- NOTE | 2021-09-14 20:30 | NUR ---
Initial shift assessment done-has been resting tonight- watching TV,, VSS, abd very distended,firm- continues with jaundice- Tele on, states pain to abd 04/06,, will give pain meds when due.
[2021-09-15] VITALS (10 sets, daily range): BP systolic 120–144; BP diastolic 51–94; PULSE 85–111; TEMP 97.4–98.7
--- NOTE | 2021-09-15 01:11 | NUR ---
States abd pain still 03/07, will give the additional dose at this time per orders
--- NOTE | 2021-09-15 05:36 | NUR ---
Did sleep for 2-3 hours after pain meds last night- VSS
--- NOTE | 2021-09-15 07:30 | NUR ---
REPORT RECIEVED FROM LISA GRADY BUT CURRENTLY SLEEPING CALL LIGHT WITHIN REACH
[2021-09-15 08:08] LABS: INR 1.8 (0.8-3.0); PROTHROMBIN TIME 19.5 SECONDS (9.7-12.8)
[2021-09-15 08:10] LABS: MEAN CELL VOLUME 94 fl (80.0-100.0); MEAN CORPUSCULAR HGB CONC 31 g/dl (33.0-37.0); PLATELET COUNT 227 K/mm3 (130-400); RED BLOOD COUNT 3.13 M/mm3 (4.10-5.30); REDCELL DISTRIBUTION WIDTH-CV 21.2 % (11.5-14.5)
[2021-09-15 08:22] LABS: ALBUMIN 2.1 gm/dL (3.5-5.0); CALCIUM 8.4 mg/dL (8.4-10.2); CREATININE, serum 1.38 mg/dL (0.57-1.11); POTASSIUM 4.1 mmol/L (3.5-4.5); TOTAL PROTEIN 6.9 gm/dL (6.2-8.1)
[2021-09-15 08:25] LABS: BILIRUBIN,TOTAL 25.9 mg/dL (0.2-1.2)
[2021-09-15 08:27] LABS: HEMATOCRIT 29.4 % (37.0-47.0); HEMOGLOBIN 9.2 g/dl (12.5-16.0); MEAN CORPUSCULAR HEMOGLOBIN 29 pg (27-31)
[2021-09-15 10:40] LABS: ANISOCYTOSIS 2+; BAND 1 % (0-10); EOSINOPHIL 1 % (0-4); HYPOCHROMIA 2+; LYMPHOCYTE 7 % (20.0-51.0); NEUTROPHILS 84 % (42.0-75.2); PLATELET ESTIMATE NORMAL (NORMAL)
--- NOTE | 2021-09-15 19:11 | NUR ---
RECEIVED CHANGE OF SHIFT REPORT FROM DAY SHIFT NURSE.
--- NOTE | 2021-09-15 19:18 | NUR ---
PT SITTING IN CHAIR, TOOK A SHOWER. PAIN MEDICATION GIVEN PER PT REQUEST. PT DENIES ANY NEEDS. PT IS AWARE THAT SHE SCHEDULED FOR PARACENTICIS IN AM
--- NOTE | 2021-09-15 20:49 | NUR ---
REPORTS PAIN MED HELPED SOME BUT STILL HAS SOME PAIN, REPORTS ALSO FEELS ANXIOUS AND SHAKEY, OBSERVED SOME SHAKING TO LIMBS. PATIENT ALSO WEEPY SOME AT THIS TIME.
[2021-09-16] VITALS (8 sets, daily range): BP systolic 123–166; BP diastolic 63–98; PULSE 92–112; TEMP 97.5–98.7
--- NOTE | 2021-09-16 07:06 | NUR ---
REPORT RECIVED FROM ECTOR,PT RESTING IN BED DENIES ANY NEEDS AT THIS TIME
--- NOTE | 2021-09-16 07:33 | NUR ---
CHANGE OF SHIFT REPORT GIVEN TO DAY SHIFT FLETCHER GRADY.
[2021-09-16 08:01] LABS: ALBUMIN 1.9 gm/dL (3.5-5.0); BILIRUBIN,TOTAL 22.8 mg/dL (0.2-1.2); CALCIUM 8.3 mg/dL (8.4-10.2); CREATININE, serum 1.38 mg/dL (0.57-1.11); TOTAL PROTEIN 6.4 gm/dL (6.2-8.1)
[2021-09-16 08:18] LABS: MEAN CELL VOLUME 91 fl (80.0-100.0); MEAN CORPUSCULAR HGB CONC 32 g/dl (33.0-37.0); MEAN PLATELET VOLUME 9.7 fl (7.4-10.4); PLATELET COUNT 190 K/mm3 (130-400); RED BLOOD COUNT 2.93 M/mm3 (4.10-5.30); REDCELL DISTRIBUTION WIDTH-CV 21.2 % (11.5-14.5)
[2021-09-16 08:27] LABS: HEMATOCRIT 26.7 % (37.0-47.0); HEMOGLOBIN 8.6 g/dl (12.5-16.0); MEAN CORPUSCULAR HEMOGLOBIN 29 pg (27-31)
[2021-09-16 09:47] LABS: BAND 9 % (0-10); EOSINOPHIL 1 % (0-4); LYMPHOCYTE 6 % (20.0-51.0); NEUTROPHILS 78 % (42.0-75.2)
[2021-09-16 09:50] LABS: ANISOCYTOSIS 2+; HYPOCHROMIA 2+; PLATELET ESTIMATE NORMAL (NORMAL)
[2021-09-16 09:51] LABS: TARGET CELLS 2+
--- NOTE | 2021-09-16 10:26 | NUR ---
PER [employer] THEY CANNOT DO PARACENTESIS TODAY DUE HAVING ONE RADIOLOGIST. DR LUCAS CALLED PER ANJANA REDMAN REQUEST TO SEE IF CAN DO PARACENTESIS AT THE BEDSIDE. PER DR LUCAS UNABLE TO DO IT RECOMMONDED HAVING RADIOLOGIST DO THE PROCEDURE TOMMOROW. [employer] CALLED AND NOTIFY WILL CALLED BACK THIS NURSE IF THEY WILL DO PROCECURE TOMMOROW
[2021-09-16 11:09] LABS: PATHOLOGY DIFF REVIEW OK
[2021-09-16] MEDS ORDERED: ALDACTONE 25MG25 M1 PO (13:00)
[2021-09-16] MEDS ORDERED: LASIX 20MG TABL20 MG PO (13:00)
[2021-09-16] MEDS ORDERED: PREDNISOLO15 MG/5 M3 PO (13:05)
[2021-09-16] MEDS ORDERED: MULTI VITAMINS1 TAB PO (13:06)
[2021-09-16] MEDS ORDERED: FOLIC ACID 11 MG/TA1 PO (13:06)
[2021-09-16] MEDS ORDERED: THIAMINE 1100 MG/TAB PO (13:06)
[2021-09-16] MEDS ORDERED: CIPRO 500MG TA500 MG PO (14:17)
[2021-09-16] MEDS ORDERED: ROXICODONE 55 MG/TAB PO (14:53)
--- NOTE | 2021-09-16 15:06 | NUR ---
Electrical Manufacturing Engineer collaborated with HERB Jimenez who advised patient is ready for discharge today and needs a medication voucher. LAMINE faxed voucher totaling $[address] [facility]. LAMINE provided medication voucher to patient along with prescriptions and advised her she would need to car pick up driver the medications today at [facility]. Patient verbalized understanding and advised she knows where [facility] is located. LAMINE spoke with Flo Financial Counselor who advised she scheduled patient an appointment at [employer] to apply for disability. LAMINE provided appointment to patient (10/09/2021 @1100). Discharge Plan: Home
--- NOTE | 2021-09-16 16:25 | NUR ---
PT DISCHARGE HOME ON STABLE CONDITION. D/C INSTRUCTIONS MEDICATION AND FOLLOW UP REVEIWED WITH PT QUESTIONS AND CONCERNS ADDRESSED.ALL PERSONAL BELONINGS SEND WITH PT. PT ESCORTED BY PCT VIA WC TO MAIN ENTRANCE
== END 2021-09-16 16:00 | disposition home or self-care (01) | DRG 432 ==
LOC: COL.ER 11:34 → MEDICAL 16:37
PROVIDERS: Emergency Medicine; Physician Assistant; ADMIT Student in an Organized Health Care Education/Training Program
PROC: 0W9G3ZX Drainage of Peritoneal Cavity, Percutaneous Approach, Diagnostic (ICD-10-PCS; principal; 2021-09-11)
PROC: 0W9G3ZZ Drainage of Peritoneal Cavity, Percutaneous Approach (ICD-10-PCS; 2021-09-16)
DX: K70.11 Alcoholic hepatitis with ascites (principal); K76.7 Hepatorenal syndrome; N17.9 Acute kidney failure, unspecified; E87.1 Hypo-osmolality and hyponatremia; K76.6 Portal hypertension; K70.31 Alcoholic cirrhosis of liver with ascites; R16.1 Splenomegaly, not elsewhere classified; E87.6 Hypokalemia; K72.90 Hepatic failure, unspecified without coma; Z20.822 Contact with and (suspected) exposure to COVID-19; D64.9 Anemia, unspecified; F10.20 Alcohol dependence, uncomplicated; D72.829 Elevated white blood cell count, unspecified; F17.210 Nicotine dependence, cigarettes, uncomplicated
CPT/HCPCS: 99223-AI; 99232-AI; 99233-AI; 99239; J0132; J0696; J2060; J2270; J3010; J3430; J3480; J7060; J7070; J7510; P9047

== ENCOUNTER → 2021-10-17 | Outpatient (CLI) | payer SELFPAY ==
[~2021-10-17] VITALS: Ht 172.7 cm; Wt 82.9 kg
[~2021-10-17] MED LIST changes: +ACTIGALL 300MG300 MG PO; +ALDACTONE 25MG25 M1 PO; +CIPRO 500MG TA500 MG PO; +COLACE 100100 MG/CAP PO; +CONSTULOSE 20G/30ML PO; +FOLIC ACID 11 MG/TA1 PO; +LASIX 20MG TABL20 MG PO; +MAGNESIUM200 MG PO; +MULTI VITAMINS1 TAB PO; +NATURE'S BLEND100 M2 PO; +PREDNISOLO15 MG/5 M3 PO; +ROXICODONE 55 MG/TAB PO; +THIAMINE 1100 MG/TAB PO
[2021-10-17 13:38] VITALS: BP 100/50; PULSE 123; TEMP 97.9
[2021-10-17 15:31] LABS: PERITONEAL -POLYMORPHONUCLEAR 5.4 % (0-25)
--- NOTE | 2021-10-17 17:20 | NUR ---
Dressing replaced over paracentesis site changed due to seeping at site. gauze and foam tape placed over site. Pt's father contacted to sampler pickup patient.
== END ==
LOC: COL.RAD 13:15
PROVIDERS: Internal Medicine Gastroenterology
DX: R18.8 Other ascites (principal)
CPT/HCPCS: P9047

== ENCOUNTER 2021-10-22 09:02 | Day surgery (SDC) | payer MEDICAID ==
[~2021-10-22] VITALS: Ht 172.7 cm; Wt 80.8 kg
[~2021-10-22 09:02] MED LIST changes: -CONSTULOSE 20G/30ML PO; -MAGNESIUM200 MG PO
[2021-10-22] MEDS ORDERED: CONSTULOSE 20G/30ML PO (09:24)
[2021-10-22] MEDS ORDERED: MAGNESIUM200 MG PO (09:26)
[2021-10-22 09:51] VITALS: BP 120/88; PULSE 113; TEMP 98.1
[2021-10-22 10:55] VITALS: BP 100/64; PULSE 109; TEMP 98.1
--- NOTE | 2021-10-22 10:55 | NUR ---
PATIENT TRANSPORTED PER CART FROM GI SUITE TO BAY 5 ACCOMPANIED BY ENDO RN. PATIENT IS TALKING WITH STAFF. PATIENT AMBULATED FROM CART TO CHAIR WITH 2 ASSIST, STEADY GAIT. MONITORS APPLIED. VSS. PATIENT'S MOTHER IN ROOM. VERBAL REPORT RECEIVED.
[2021-10-22 11:00] VITALS: BP 107/67; PULSE 111
--- NOTE | 2021-10-22 11:00 | NUR ---
VSS ON ROOM AIR. PATIENT GIVEN MUFFIN, APPLESAUCE AND PEPSI. DENIES DISCOFORTS AT THIS TIME
[2021-10-22 11:15] VITALS: BP 108/62; PULSE 112
--- NOTE | 2021-10-22 11:15 | NUR ---
VSS ON ROOM AIR. DR LUCAS IN ROOM AND SPEAKS WITH PATIENT AND MOTHER. PATIENT TOLERATES FOOD AND DRINK WITHOUT PROBLEMS.
[2021-10-22 11:25] VITALS: BP 101/76; PULSE 112
--- NOTE | 2021-10-22 11:25 | NUR ---
VSS ON ROOM AIR. IV DC'D WITH CATHETER TIP INTACT. PRESSURE AND BANDAGE APPLIED. DISCHARGE INSTRUCTIONS GIVEN VERBAL AND DISCHARGE PACKET PROVIDED. CALL MADE TO RADIOLOGY SCHEDULING FOR PATIENT TO COMFIRM A PROCEDURE. QUESTIONS ANSWERED AND PATIENT VOICED UNDERSTANDING. PATIENT CHANGES INTO STREET CLOTHES. 1130 PATIENT DC'D PER WHEELCHAIR ACCOMPANIED BY AMB RN TO PRIVATE VECHILE DRIVEN BY MOTHER.
== END 2021-10-22 11:13 | disposition home or self-care (01) ==
LOC: SDCO 09:02
DX: I85.00 Esophageal varices without bleeding (principal); K70.31 Alcoholic cirrhosis of liver with ascites; K31.89 Other diseases of stomach and duodenum; K76.6 Portal hypertension; N17.9 Acute kidney failure, unspecified; R11.2 Nausea with vomiting, unspecified; D64.9 Anemia, unspecified; F17.210 Nicotine dependence, cigarettes, uncomplicated; F32.A Depression, unspecified; F41.9 Anxiety disorder, unspecified; Z79.899 Other long term (current) drug therapy; Z79.891 Long term (current) use of opiate analgesic
CPT/HCPCS: J2704; J7030

== ENCOUNTER 2021-10-24 14:06 | Emergency (ER) | payer MEDICAID ==
[~2021-10-24] VITALS: Ht 172.7 cm; Wt 81.8 kg
[~2021-10-24 14:06] MED LIST changes: +CONSTULOSE 20G/30ML PO; +MAGNESIUM200 MG PO
[2021-10-24 14:14] VITALS: TEMP 98.2
[2021-10-24] MEDS ORDERED: BACTRIM DS 8001 TAB PO (14:34)
[2021-10-24] MEDS ORDERED: CEPHALEXIN500 M1 PO (14:34)
[2021-10-24] MEDS ORDERED: OXY IR5 MG PO (14:34)
[2021-10-24 15:26] VITALS: BP 125/75; PULSE 98
== END 2021-10-24 15:29 | disposition home or self-care (01) ==
LOC: COL.ER 14:06
DX: L03.116 Cellulitis of left lower limb (principal); L03.115 Cellulitis of right lower limb
CPT/HCPCS: J0696

== ENCOUNTER 2021-10-29 12:03 | Outpatient (CLI) | payer MEDICAID ==
[~2021-10-29] VITALS: Ht 172.7 cm; Wt 87.2 kg
[~2021-10-29 12:03] MED LIST changes: +OXY IR5 MG PO
[2021-10-29 12:26] VITALS: BP 139/84; PULSE 114; TEMP 98.2
[2021-10-29 13:45] LABS: PERITONEAL -POLYMORPHONUCLEAR 4.4 % (0-25)
[2021-10-29 14:39] VITALS: BP 122/70; PULSE 100
== END 2021-10-29 16:50 | disposition home or self-care (01) ==
LOC: COL.RAD 12:03
PROVIDERS: Internal Medicine Gastroenterology
DX: K70.9 Alcoholic liver disease, unspecified (principal)
CPT/HCPCS: P9047

== ENCOUNTER 2021-11-08 14:34 | Emergency (ER) | payer MEDICAID ==
[~2021-11-08] VITALS: Ht 172.7 cm; Wt 90.9 kg
[2021-11-08] MEDS ORDERED: DOXYCYCLINE 10100 MG PO (15:14)
[2021-11-08] MEDS ORDERED: LASIX 40MG TABL40 MG PO (15:14)
[2021-11-08 15:30] VITALS: BP 137/72; PULSE 100; TEMP 98.2
== END 2021-11-08 15:30 | disposition home or self-care (01) ==
LOC: COL.ER 14:34
DX: R60.0 Localized edema (principal)

== ENCOUNTER 2021-11-11 11:58 | Outpatient (CLI) | payer MEDICAID ==
[~2021-11-11] VITALS: Ht 172.7 cm; Wt 90.2 kg
[~2021-11-11 11:58] MED LIST changes: +LASIX 40MG TABL40 MG PO
[2021-11-11] MEDS ORDERED: DOXYCYCLINE HY100 MG PO (12:13)
[2021-11-11] MEDS ORDERED: LASIX 40MG TABL40 MG PO (12:14)
[2021-11-11] MEDS ORDERED: OXY IR5 MG PO (12:15)
[2021-11-11 12:16] VITALS: BP 128/83; PULSE 122; TEMP 98.1
[2021-11-11 13:43] LABS: PERITONEAL -POLYMORPHONUCLEAR 4.1 % (0-25)
[2021-11-11 15:14] VITALS: BP 122/68; PULSE 101
== END 2021-11-11 16:37 | disposition home or self-care (01) ==
LOC: COL.RAD 11:58
PROVIDERS: Internal Medicine Gastroenterology
DX: K70.9 Alcoholic liver disease, unspecified (principal)
CPT/HCPCS: P9047

== ENCOUNTER 2021-11-12 15:30 | Outpatient (RCR) | payer MEDICAID ==
[2021-10-31 14:27] VITALS: BP 124/67; PULSE 113; TEMP 98.1
[2021-11-05 16:10] VITALS: BP 111/73; PULSE 114; TEMP 98.5
[2021-11-08 15:58] VITALS: BP 118/63; PULSE 124; TEMP 98
[~2021-11-12] VITALS: Ht 172.7 cm; Wt 85.6 kg
[~2021-11-12 15:30] MED LIST changes: +DOXYCYCLINE HY100 MG PO
[2021-11-12 16:04] VITALS: BP 107/58; PULSE 100; TEMP 98.1
--- NOTE | 2021-11-18 13:00 | NUR ---
pT DID NOT SHOW FOR HER APT ON THURSDAY, 18.WILL ATTEMPT TO REACH PT.
--- NOTE | 2021-11-18 13:06 | NUR ---
THIS NURSE SPOKE WITH PT TODAY.PER PT SHE IS NOT COMING FOR HER LAST DOSE OF IRON.SHE REPORTS DR IS AWARE.ACCT WILL BE CLOSED.
[2021-11-20] MEDS ORDERED: LACTULOSE10 GM/153 PO (12:07)
[2021-11-20] MEDS ORDERED: ALDACTONE 100M100 MG PO (12:08)
[2021-11-20] MEDS ORDERED: K-DUR20 MEQ PO (12:09)
== END 2021-11-18 13:07 ==
LOC: EUO 15:30
DX: D64.9 Anemia, unspecified (principal)
CPT/HCPCS: J1756; J7050

== ENCOUNTER 2021-11-15 16:45 | Emergency (ER) | payer MEDICAID ==
[~2021-11-15] VITALS: Ht 172.7 cm; Wt 86.4 kg
[2021-11-15 17:48] LABS: BASO # 0.1 K/mm3 (0.0-0.2); BASO % 1.1 % (0.0-2.0); EOS # 0.2 K/mm3 (0.0-0.7); EOS % 2.7 % (0.0-4.0); GRAN # 5.4 K/mm3 (1.4-6.5); LYMPH % 22.5 % (20.0-51.0); MEAN CELL VOLUME 98 fl (80.0-100.0); MEAN CORPUSCULAR HGB CONC 33 g/dl (33.0-37.0); MEAN PLATELET VOLUME 9.5 fl (7.4-10.4); MONO # 1.1 K/mm3 (0.1-0.6); MONO % 12.4 % (1.7-9.3); PLATELET COUNT 146 K/mm3 (130-400); RED BLOOD COUNT 2.53 M/mm3 (4.10-5.30); REDCELL DISTRIBUTION WIDTH-CV 15.8 % (11.5-14.5)
[2021-11-15 17:49] LABS: HEMATOCRIT 24.7 % (37.0-47.0); HEMOGLOBIN 8.2 g/dl (12.5-16.0); MEAN CORPUSCULAR HEMOGLOBIN 32 pg (27-31)
[2021-11-15 18:21] LABS: ALBUMIN 2.9 gm/dL (3.5-5.0); BILIRUBIN,TOTAL 3.8 mg/dL (0.2-1.2); CALCIUM 8.1 mg/dL (8.4-10.2); CREATININE, serum 0.81 mg/dL (0.57-1.11); MAGNESIUM 1.3 mg/dL (1.6-2.6); TOTAL PROTEIN 6.2 gm/dL (6.2-8.1)
[2021-11-15 18:22] LABS: POTASSIUM 2.6 mmol/L (3.5-4.5)
[2021-11-15 20:31] VITALS: BP 115/77; PULSE 98; TEMP 98.4
[2021-11-20] MEDS ORDERED: LACTULOSE10 GM/153 PO (12:07)
[2021-11-20] MEDS ORDERED: ALDACTONE 100M100 MG PO (12:08)
[2021-11-20] MEDS ORDERED: K-DUR20 MEQ PO (12:09)
== END 2021-11-15 20:36 | disposition home or self-care (01) ==
LOC: COL.ER 16:45
PROVIDERS: Nurse Practitioner
DX: E87.6 Hypokalemia (principal); E83.42 Hypomagnesemia
CPT/HCPCS: J3475; J3480; J7030

== ENCOUNTER → 2021-11-20 | Outpatient (CLI) | payer MEDICAID ==
[~2021-11-20] VITALS: Ht 172.7 cm; Wt 89.1 kg
[~2021-11-20] MED LIST changes: +ALDACTONE 100M100 MG PO; +K-DUR20 MEQ PO; +LACTULOSE10 GM/153 PO
[2021-11-20 12:13] VITALS: BP 127/85; PULSE 117; TEMP 98.3
[2021-11-20 13:15] VITALS: BP 116/81; PULSE 113
[2021-11-20 13:30] LABS: PERITONEAL -POLYMORPHONUCLEAR 7.4 % (0-25)
== END ==
LOC: COL.RAD 11:45
PROVIDERS: Internal Medicine Gastroenterology
DX: K70.9 Alcoholic liver disease, unspecified (principal)
CPT/HCPCS: 19804

== ENCOUNTER → 2022-04-23 | Outpatient (CLI) | payer MEDICAID | LOC: COL.RAD 09:00 | DX: K70.31 Alcoholic cirrhosis of liver with ascites (principal); K82.9 Disease of gallbladder, unspecified ==

== ENCOUNTER 2022-06-12 16:45 | Emergency (ER) | payer MEDICAID ==
[~2022-06-12] VITALS: Ht 172.7 cm; Wt 68.2 kg
[2022-06-12 17:51] LABS: BASO % 0.3 % (0.0-2.0); GRAN # 2.2 K/mm3 (1.4-6.5); GRAN % 75.6 % (42.2-75.2); HEMOGLOBIN 11.9 g/dl (12.5-16.0); LYMPH # 0.6 K/mm3 (1.2-3.4); MEAN CELL VOLUME 93 fl (80.0-100.0); MEAN CORPUSCULAR HEMOGLOBIN 31 pg (27-31); MEAN CORPUSCULAR HGB CONC 33 g/dl (33.0-37.0); MEAN PLATELET VOLUME 10.5 fl (7.4-10.4); MONO # 0.1 K/mm3 (0.1-0.6); MONO % 3.4 % (1.7-9.3); PLATELET COUNT 65 K/mm3 (130-400); RED BLOOD COUNT 3.85 M/mm3 (4.10-5.30); REDCELL DISTRIBUTION WIDTH-CV 15.6 % (11.5-14.5)
[2022-06-12 18:08] LABS: ALBUMIN 3.6 gm/dL (3.5-5.0); BILIRUBIN,TOTAL 2.8 mg/dL (0.2-1.2); CALCIUM 9.5 mg/dL (8.4-10.2); CREATININE, serum 0.8 mg/dL (0.57-1.11); POTASSIUM 3.8 mmol/L (3.5-4.5)
[2022-06-12 18:21] LABS: HEMATOCRIT 35.6 % (37.0-47.0)
[2022-06-12 18:43] LABS: COLLECTION METHOD CLEAN CATCH
[2022-06-12 18:48] LABS: URINE APPEARANCE Clear (CLEAR/HAZY); URINE COLOR Yellow (YELLOW)
[2022-06-12 18:49] LABS: PH 6.5 (5.0-8.5); URINE BLOOD 2+ (NEGATIVE); URINE GLUCOSE Negative (NEGATIVE); URINE KETONE Negative (NEGATIVE); URINE NITRATE Negative (NEGATIVE); URINE PROTEIN(semi-quant) 1+ (NEGATIVE)
[2022-06-12 18:57] LABS: MUCOUS Present (NOT PRESENT); URINE BACTERIA None Seen /hpf (NONE SEEN); URINE RBC >50 /hpf (0-2)
[2022-06-12 19:41] LABS: INR 1.6 (0.8-3.0); PROTHROMBIN TIME 18.1 SECONDS (9.7-12.8)
[2022-06-12 21:09] VITALS: TEMP 99.2
[2022-06-12 23:33] VITALS: BP 118/73; PULSE 86
== END 2022-06-12 23:33 | disposition short-term general hospital (02) ==
LOC: COL.ER 16:45
PROVIDERS: Nurse Practitioner Primary Care; Physician Assistant
DX: A41.9 Sepsis, unspecified organism (principal); R65.21 Severe sepsis with septic shock; K70.30 Alcoholic cirrhosis of liver without ascites; F17.290 Nicotine dependence, other tobacco product, uncomplicated; Z20.822 Contact with and (suspected) exposure to COVID-19; Z28.311 Partially vaccinated for COVID-19; Z99.81 Dependence on supplemental oxygen
CPT/HCPCS: C9113; J0780; J1885; J2354; J2370; J2543; J7030; J7040; J7050; Q9967

== ENCOUNTER 2022-11-04 10:31 | Inpatient (IN) | payer MEDICAID ==
[~2022-11-04] VITALS: Ht 172.7 cm; Wt 69.0 kg
[2022-11-04 11:26] LABS: HEMOGLOBIN 11.7 g/dl (12.5-16.0); MEAN CELL VOLUME 89 fl (80.0-100.0); MEAN CORPUSCULAR HEMOGLOBIN 30 pg (27-31); MEAN CORPUSCULAR HGB CONC 34 g/dl (33.0-37.0); MEAN PLATELET VOLUME 10.7 fl (7.4-10.4); PLATELET COUNT 95 K/mm3 (130-400); REDCELL DISTRIBUTION WIDTH-CV 16.5 % (11.5-14.5)
[2022-11-04 11:27] LABS: HEMATOCRIT 34.7 % (37.0-47.0)
[2022-11-04 11:31] LABS: ALBUMIN 2.9 gm/dL (3.5-5.0); BILIRUBIN,TOTAL 5.8 mg/dL (0.2-1.2); CALCIUM 8.1 mg/dL (8.4-10.2); CREATININE, serum 0.91 mg/dL (0.57-1.11); POTASSIUM 3.7 mmol/L (3.5-4.5); TOTAL PROTEIN 6.6 gm/dL (6.2-8.1)
[2022-11-04 12:02] LABS: BAND 12 % (0-10); EOSINOPHIL 1 % (0-4); LYMPHOCYTE 2 % (20.0-51.0); NEUTROPHILS 81 % (42.0-75.2)
[2022-11-04 12:03] LABS: ANISOCYTOSIS 1+; PLATELET ESTIMATE DECREASED (NORMAL); TEAR DROP CELLS 1+
[2022-11-04 12:47] LABS: INR 2.2 (0.8-3.0); PROTHROMBIN TIME 25.3 SECONDS (9.7-12.8)
[2022-11-04] MEDS ORDERED: FOLIC ACID 11 MG/TA1 PO (12:54)
[2022-11-04 13:51] VITALS: BP 121/62; PULSE 114; TEMP 100
--- NOTE | 2022-11-04 13:51 | NUR ---
Patient arrived to the unit by bed, transfer herself to the unit bed. Alert and oriented x 4, Tachycardic with fever. BLE cellullites. Right leg extends to the pelvis. Marker used to draw how extended is the redness. Assessment intake done.
[2022-11-04] MEDS ORDERED: GRALISE300 MG PO (13:57)
[2022-11-04 15:56] VITALS: BP 111/62; PULSE 107; TEMP 99.5
--- NOTE | 2022-11-04 18:52 | NUR ---
Patient has been resting in bed, states her pain is tolerable. Continues tachycardic and with fever. Report given to night RN.
[2022-11-04 20:13] VITALS: BP 139/82; PULSE 113; TEMP 98.8
[2022-11-04] MEDS ORDERED: ZOFRAN ODT4 MG PO (22:56)
[2022-11-04] MEDS ORDERED: NEURONTIN300 MG/CAP PO (22:57)
[2022-11-04] MEDS ORDERED: PROTONIX 40MG T40 MG PO (22:58)
[2022-11-04 23:17] VITALS: BP 111/63; PULSE 113; TEMP 98.9
[2022-11-05] VITALS (7 sets, daily range): BP systolic 101–148; BP diastolic 46–65; PULSE 54–108; TEMP 97.6–99.3
[2022-11-05 06:48] LABS: MEAN CELL VOLUME 88 fl (80.0-100.0); MEAN CORPUSCULAR HGB CONC 34 g/dl (33.0-37.0); MEAN PLATELET VOLUME 10.8 fl (7.4-10.4); PLATELET COUNT 79 K/mm3 (130-400); RED BLOOD COUNT 3.23 M/mm3 (4.10-5.30); REDCELL DISTRIBUTION WIDTH-CV 16.5 % (11.5-14.5)
[2022-11-05 06:59] LABS: HEMATOCRIT 28.4 % (37.0-47.0); HEMOGLOBIN 9.7 g/dl (12.5-16.0); MEAN CORPUSCULAR HEMOGLOBIN 30 pg (27-31)
[2022-11-05 07:13] LABS: ALBUMIN 2.3 gm/dL (3.5-5.0); BILIRUBIN,TOTAL 5.9 mg/dL (0.2-1.2); CALCIUM 7.5 mg/dL (8.4-10.2); CREATININE, serum 0.71 mg/dL (0.57-1.11); POTASSIUM 3.4 mmol/L (3.5-4.5); TOTAL PROTEIN 5.4 gm/dL (6.2-8.1)
--- NOTE | 2022-11-05 09:13 | NUR ---
SHIFT ASSESSMENT COMPLETED AND MORNING MEDICATIONS ADMINISTERED PER ORDER. PATIENT IS ALERT AND ORIENTED X4. C/O PAIN / TO HER BILATERAL LEGS, WILL TREAT WITH PRN PAIN MEDICATION PER ORDER. LUNGS CTA. CELLULITIS NOTED TO BILATERAL LOWER LEGS, BOTH LEGS ARE REDDENED AND WEEPING. DISTAL PULSES PALPABLE BUT FAINT. PATIENT REQUESTING FOOD THIS MORNING, EDUCATED PATIENT THAT SHE IS NPO UNTIL AFTER HER ABD US, PATIENT STATES SHE IS UPSET WAITING FOR US. PATIENT ALSO STATES THAT SHE WILL DO HER VENOUS DUPLEX US TODAY, BUT ONLY AFTER SHE EATS AND HAS MORPHINE. US UPDATED ON PATIENTS REQUEST, PER US TECH, THEY ARE UNABLE TO COME UP TO THE FLOOR MULTIPLE TIMES AND PATIENT WILL NEED TO DO BOTH PROCEDURES AT ONCE. PATIENT UPDATED, STATES SHE WILL NOT BE DOING THE VENOUS DUPLEX. HERB IBARRA UPDATED.
[2022-11-05 09:30] LABS: BAND 23 % (0-10); EOSINOPHIL 3 % (0-4); HYPOCHROMIA 1+; LYMPHOCYTE 8 % (20.0-51.0); NEUTROPHILS 60 % (42.0-75.2); PLATELET ESTIMATE DECREASED (NORMAL)
[2022-11-05 09:31] LABS: ANISOCYTOSIS 1+; MICROCYTOSIS 1+
--- NOTE | 2022-11-05 14:06 | NUR ---
SW met with patient to compelte intake and discuss discharge plan. Patient reports that she lives at home with her life partner Fredi ([phone]). Patient reports to being fully independent with her ADL's and does not utilize any DME to assist with mobility or home oxygen. PCP is and she utilizes [facility] for prescriptions. Patient does have have a DPOA-HC established and does not wish to create one at this time. Patient is planning on returning home once medically ready. Discharge plan:Home
--- NOTE | 2022-11-05 18:11 | NUR ---
THIS RN ENTERED PATIENT'S ROOM AND NOTED SETTINGS ON IV PUMP TO BE CHANGED. PATIENT HAD VANCOMYCIN AND ZOSYN RUNNING ON TWO PUMPS, ZOSYN NOTED TO BE CLEARED AND NEW MEDICATION ENTERED INTO PUMP BUT NOT STARTED, AND VANCOMYCIN NOTED TO BE CLEARED ON PUMP, THOUGH AMPLE MEDICATION REMAINED IN THE BAG. THIS RN ASKED PATIENT IF SHE TOUCHED THE PUMP AND SHE STATED YES BECAUSE IT WAS BEEPING. THIS RN EDUCATED PATIENT ON IMPORTANCE OF NOT TOUCHING HER IV PUMPS AND ADMINISTERING MEDICATIONS AT THE INCORRECT RATE CAN BE DETTRIMENTAL TO HER HEALTH. PATIENT VERBALIZED UNDERSTANDING. IV PUMPS RESUMED AND LOCKED. PATIENT DENIES NEEDS AT THIS TIME.
--- NOTE | 2022-11-05 20:30 | NUR ---
PT RESTING IN BED. A&OX4. PLEASANT AND COOPERATRIVE. CONTINUES ISOLATION FOR MRSA. RLE SWOLLEN AND RED. SEEPING YELLOWISH DRAINAGE. LLE RED BUT LESS SWOLLEN. ELEVATD ON PILLOWS. SEE MAR FOR ROXICODONE 10MG PO GIVEN. ZOFRAN FOR C/O SL NAUSEA D/T HICCOUGHS AND ACID REFLUX. PT AMB TO BR TO VOID. REPORTS HAD A LG LOOSE STOOL TODAY.
--- NOTE | 2022-11-05 23:25 | NUR ---
PT C/O HICCOUGHS AGAIN. HAD RELIEF [id number].
--- NOTE | 2022-11-06 02:21 | NUR ---
SENT RODRIGUE CARRP MESSAGE RE: C/O PERSISITENT MIGUE. WAITING FOR REPLY.
--- NOTE | 2022-11-06 02:31 | NUR ---
SEE NEW ORDERS FOR REGLAN FOR HICCOUGHS.
--- NOTE | 2022-11-06 02:42 | NUR ---
SEE MAR FOR REGLAN 10MG IV GIVEN FOR HICCOUGHS.
[2022-11-06 03:33] VITALS: BP 106/6; PULSE 97; TEMP 99.6
[2022-11-06 03:49] LABS: COLLECTION METHOD CLEAN CATCH
[2022-11-06 04:07] LABS: URINE APPEARANCE Clear (CLEAR/HAZY); URINE BLOOD 1+ (NEGATIVE); URINE COLOR Yellow (YELLOW); URINE GLUCOSE Negative (NEGATIVE); URINE KETONE Negative (NEGATIVE); URINE NITRATE Negative (NEGATIVE); URINE PROTEIN(semi-quant) Negative (NEGATIVE)
[2022-11-06 04:10] LABS: SQUAMOUS EPITHELIAL 0-2 /hpf (0-10); URINE BACTERIA None Seen /hpf (NONE SEEN)
--- NOTE | 2022-11-06 05:38 | NUR ---
PT PULLED IV OUT FROM RT FA. CHANGED BEDDING AND GOWN. LAB HERE.
[2022-11-06 05:58] LABS: HEMOGLOBIN 10.6 g/dl (12.5-16.0); MEAN CELL VOLUME 88 fl (80.0-100.0); MEAN CORPUSCULAR HEMOGLOBIN 30 pg (27-31); MEAN CORPUSCULAR HGB CONC 34 g/dl (33.0-37.0); MEAN PLATELET VOLUME 11.4 fl (7.4-10.4); PLATELET COUNT 97 K/mm3 (130-400); RED BLOOD COUNT 3.52 M/mm3 (4.10-5.30); REDCELL DISTRIBUTION WIDTH-CV 16.5 % (11.5-14.5)
[2022-11-06 06:05] LABS: HEMATOCRIT 30.8 % (37.0-47.0)
[2022-11-06 06:13] LABS: ALBUMIN 2.5 gm/dL (3.5-5.0); BILIRUBIN,TOTAL 7.5 mg/dL (0.2-1.2); CALCIUM 8.2 mg/dL (8.4-10.2); CREATININE, serum 0.76 mg/dL (0.57-1.11); POTASSIUM 3.5 mmol/L (3.5-4.5); TOTAL PROTEIN 6.1 gm/dL (6.2-8.1)
[2022-11-06 06:14] LABS: BAND 10 % (0-10); EOSINOPHIL 2 % (0-4); LYMPHOCYTE 15 % (20.0-51.0); NEUTROPHILS 68 % (42.0-75.2)
[2022-11-06 06:15] LABS: ANISOCYTOSIS 1+; PLATELET ESTIMATE DECREASED (NORMAL)
[2022-11-06 08:44] VITALS: BP 108/52; PULSE 107; TEMP 99.5
--- NOTE | 2022-11-06 09:20 | NUR ---
Vancomycin Follow-up Pharmacy Note Current regimen: Vancomycin 1 gm IV q8h Vancomycin trough: 5.17 Adjustments: Will increase Vancomycin to 1.5 gm IV q8h. Pharmacy will continue to closely monitor and check a trough prior to the 4th new dose on 11/07/22.
--- NOTE | 2022-11-06 11:13 | NUR ---
SHIFT ASSESSMENT COMPLETED AND MORNING MEDICATIONS ADMINISTERED PER ORDER. PATIENT IS ALERT AND ORIENTED X4. C/O PAIN 7/10 TO HER LEGS, TREATED WITH PRN PAIN MEDICATION PER ORDER. CELLULITIS TO LOWER LEGS. DENIES ANY NEEDS. UP WITH ASSIST. CALL LIGHT WITHIN REACH.
[2022-11-06 12:45] VITALS: BP 110/58; PULSE 108; TEMP 98.5
[2022-11-06 15:36] VITALS: BP 118/69; PULSE 102; TEMP 98.8
[2022-11-06 19:50] VITALS: BP 124/77; PULSE 100; TEMP 98.9
--- NOTE | 2022-11-06 22:34 | NUR ---
Patient assessed around 2009 after getting back from radiology. Reports level 7 pain to BLE. Given PRN Roxicodone when due around 2209. Received IV ABX per orders. Redness/weeping/edema continues to BLE. Reports hiccups have been on and off since starting new medication. Voices no further questions, needs, or concerns at this time. In bed with call light within reach.
[2022-11-06 23:22] VITALS: BP 118/53; PULSE 94; TEMP 99.3
[2022-11-07 03:55] VITALS: BP 102/65; PULSE 99; TEMP 98.9
--- NOTE | 2022-11-07 05:44 | NUR ---
Recieved PRN Roxicodone as requested during the night. Given IV ABX per orders. Reports hiccups are doing better tonight. Voices no questions, needs, or concerns at this time. In bed with call light within reach.
[2022-11-07 07:16] LABS: HEMOGLOBIN 10.3 g/dl (12.5-16.0); MEAN CELL VOLUME 89 fl (80.0-100.0); MEAN CORPUSCULAR HEMOGLOBIN 30 pg (27-31); MEAN CORPUSCULAR HGB CONC 33 g/dl (33.0-37.0); MEAN PLATELET VOLUME 10.7 fl (7.4-10.4); PLATELET COUNT 115 K/mm3 (130-400); RED BLOOD COUNT 3.48 M/mm3 (4.10-5.30); REDCELL DISTRIBUTION WIDTH-CV 16.7 % (11.5-14.5)
[2022-11-07 07:18] LABS: HEMATOCRIT 31.1 % (37.0-47.0)
[2022-11-07 07:24] LABS: CALCIUM 7.8 mg/dL (8.4-10.2); CREATININE, serum 0.68 mg/dL (0.57-1.11); POTASSIUM 3.2 mmol/L (3.5-4.5)
[2022-11-07 07:35] VITALS: BP 122/64; PULSE 97; TEMP 98.5
[2022-11-07 08:36] LABS: BAND 9 % (0-10); EOSINOPHIL 2 % (0-4); NEUTROPHILS 67 % (42.0-75.2)
[2022-11-07 08:38] LABS: LYMPHOCYTE 14 % (20.0-51.0)
[2022-11-07 08:39] LABS: ANISOCYTOSIS 1+; PLATELET ESTIMATE NORMAL (NORMAL)
[2022-11-07 12:56] VITALS: BP 120/58; PULSE 94; TEMP 98.2
--- NOTE | 2022-11-07 15:54 | NUR ---
PT AMBULATED TO BATHROOM WITHOUT PROBLEM. IV CHANGED SECOND TIME TODAY, PT C/O PAIN IN RIGHT UPPER ARM IV, IV REMOVED AND NEW PLACED IN LEFT HAND. RIGHT LOWER LEG CONTINUES TO WEEP, PATIENT COVERS LEG WITH TOWEL. ENCOURAGE PT TO KEEP LEG ELEVATED.
[2022-11-07 16:00] VITALS: BP 118/56; PULSE 95; TEMP 98.5
[2022-11-07 20:14] VITALS: BP 125/70; PULSE 103; TEMP 99.3
[2022-11-07 23:37] VITALS: BP 120/80; PULSE 101; TEMP 98.6
[2022-11-08 03:05] VITALS: BP 112/71; PULSE 91; TEMP 98.4
--- NOTE | 2022-11-08 04:51 | NUR ---
OVERNIGHT PATIENTS PAIN ELEVATED MOST OF THE NIGHT. PT STATED THAT SHE FEELS LIKE THIS IS THE WORSE PAIN SHES GOTTEN WITH CELLULITIS BEFORE. VITAL SIGNS REMAINED WITHIN NORMAL LIMITS. PT CHANGED DRESSING ON BLE 2X DURING SHIFT DUE TO WEEPING. PT FOUND AT 0440 TO BE CRYING IN ROOM STATING THAT SHE JUST FEELS LIKE HER PAIN IS NEVER GOING TO GET BETTER SHE NORMALLY IMPROVMENT OF PAIN BY NOW WHEN SHE RECEIVES ANTIBITOICS. PRN PAIN MEDICATIONS GIVEN
[2022-11-08 06:32] LABS: MEAN CELL VOLUME 90 fl (80.0-100.0); MEAN CORPUSCULAR HGB CONC 33 g/dl (33.0-37.0); MEAN PLATELET VOLUME 10.8 fl (7.4-10.4); PLATELET COUNT 131 K/mm3 (130-400); RED BLOOD COUNT 3.14 M/mm3 (4.10-5.30)
[2022-11-08 06:34] LABS: HEMATOCRIT 28.4 % (37.0-47.0); HEMOGLOBIN 9.3 g/dl (12.5-16.0); MEAN CORPUSCULAR HEMOGLOBIN 30 pg (27-31)
[2022-11-08 06:35] LABS: INR 1.9 (0.8-3.0); PROTHROMBIN TIME 22.4 SECONDS (9.7-12.8)
[2022-11-08 06:47] LABS: ALBUMIN 2.2 gm/dL (3.5-5.0); BILIRUBIN,TOTAL 5.6 mg/dL (0.2-1.2); CALCIUM 7.8 mg/dL (8.4-10.2); CREATININE, serum 0.65 mg/dL (0.57-1.11); POTASSIUM 3.1 mmol/L (3.5-4.5); TOTAL PROTEIN 5.6 gm/dL (6.2-8.1)
[2022-11-08 07:11] LABS: BAND 8 % (0-10); EOSINOPHIL 5 % (0-4); LYMPHOCYTE 11 % (20.0-51.0); METAMYELOCYTE 1 % (0-0); NEUTROPHILS 72 % (42.0-75.2); PLATELET ESTIMATE NORMAL (NORMAL)
[2022-11-08 07:12] VITALS: BP 126/74; PULSE 99; TEMP 97.9
[2022-11-08 07:12] LABS: ANISOCYTOSIS 1+; HYPOCHROMIA 1+
[2022-11-08 12:00] VITALS: BP 108/63; PULSE 96; TEMP 98.6
[2022-11-08 15:20] VITALS: BP 102/62; PULSE 67; TEMP 98
--- NOTE | 2022-11-08 18:00 | NUR ---
Schedule medications given. Shift assessment performed. VSS. Patient has c/o BLE pain throughout shift, PRN pain medication given, patient states that this has helped alleviate pain. Patient has changed dressing frequently throughout shift due to continous drainage. Patient is currenlty resting in bed. Denies any further needs at this time Call light in reach.
[2022-11-08 19:39] VITALS: BP 129/78; PULSE 102; TEMP 97.6
[2022-11-09] VITALS (7 sets, daily range): BP systolic 97–122; BP diastolic 61–71; PULSE 85–102; TEMP 98.4–99.2
--- NOTE | 2022-11-09 01:36 | NUR ---
PT LOSS IV ACCESS TO L HAND. IV REMOVED ALL PARTS INTACT. A NEW 20G IV STARTED IN R RALPH.
--- NOTE | 2022-11-09 05:30 | NUR ---
PT VITAL SIGNS REMAINED WITHIN NORMAL LIMITS OVERNIGHT. PT RECEIVED TWO DOSES OF Q4 10MG OF OXYCODONE, PT BELIEVES THAT THE OXY IS WHAT IS CAUSING HER TO RETAIN FLUID. PTS IV WENT BAD AND A NEW IV WAS PLACED IN R FA, PT WAS ABLE TO TOLERATE DOXY INFUSION AT 100ML/HR WITH THE IV IN THIS SITE WHEN PATIENT PREVIOUISLY COULD ONL TOLERATE INFUSION AT 50ML/HR. PTS BILATERAL LOWER EXTREMETIES STILL SWOLLEN WITH 3+ PITTING EDEMA, REDNESS IS IMPROVING. LEGS ARE STILL WEEPING AND FLAKY. PT IS ANXIOUS TO GO HOME AND STATES THAT SHE HOPES SHE IS NOT ON ANTIBIOTICS HERE FOR MUCH LONGER. RN INFORMED PATIENT TAHT SHE HAS RECEIVED 4 BAGS OUT OF 14 OF CURRENT ABX. PT HAS SEVERAL CONCERNS SUCH THE OXY CAUSING HER SWELLING TO DISCUSS WITH THE DOCTORS WHEN THEY ROUND IN THE MORNING.
[2022-11-09 06:18] LABS: BASO # 0.1 K/mm3 (0.0-0.2); BASO % 0.9 % (0.0-2.0); EOS # 0.2 K/mm3 (0.0-0.7); GRAN # 5.2 K/mm3 (1.4-6.5); LYMPH # 1.2 K/mm3 (1.2-3.4); LYMPH % 15.9 % (20.0-51.0); MEAN CELL VOLUME 88 fl (80.0-100.0); MEAN CORPUSCULAR HGB CONC 34 g/dl (33.0-37.0); MEAN PLATELET VOLUME 10.2 fl (7.4-10.4); MONO # 0.7 K/mm3 (0.1-0.6); MONO % 8.7 % (1.7-9.3); PLATELET COUNT 155 K/mm3 (130-400); RED BLOOD COUNT 3.15 M/mm3 (4.10-5.30); REDCELL DISTRIBUTION WIDTH-CV 17.5 % (11.5-14.5)
[2022-11-09 06:23] LABS: HEMATOCRIT 27.8 % (37.0-47.0); HEMOGLOBIN 9.4 g/dl (12.5-16.0); MEAN CORPUSCULAR HEMOGLOBIN 30 pg (27-31)
[2022-11-09 06:33] LABS: ALBUMIN 2.1 gm/dL (3.5-5.0); CALCIUM 7.9 mg/dL (8.4-10.2); CREATININE, serum 0.69 mg/dL (0.57-1.11); MAGNESIUM 1.4 mg/dL (1.6-2.6); POTASSIUM 3.1 mmol/L (3.5-4.5); TOTAL PROTEIN 5.9 gm/dL (6.2-8.1)
[2022-11-09 06:45] LABS: BILIRUBIN,TOTAL 4.2 mg/dL (0.2-1.2)
--- NOTE | 2022-11-09 07:50 | NUR ---
pt is coplaining of 9/10 pain in bilateral lower extremeties. Pain medication administered per orders. Pt has a steady gait. Alert and oriented.
[2022-11-09 08:50] LABS: BAND 6 % (0-10); EOSINOPHIL 1 % (0-4); LYMPHOCYTE 13 % (20.0-51.0); METAMYELOCYTE 2 % (0-0); NEUTROPHILS 71 % (42.0-75.2)
[2022-11-09 08:51] LABS: ANISOCYTOSIS 1+; PLATELET ESTIMATE NORMAL (NORMAL)
[2022-11-09 08:52] LABS: POLYCHROMASIA 1+
--- NOTE | 2022-11-09 10:39 | NUR ---
BlE cleansed and wrapped with nonadherent pads, gauze and meg wraps. PT tolerated well. Right leg is weaping. Right foot/heel has a "skin flap" from patient peeling it back yesterday. Skin was left in place.
--- NOTE | 2022-11-09 12:38 | NUR ---
Curator Of Collections rounds: Curator Of Collections visit attempted. Two DATA VIRTUALIZATION CONSULTANT went into Patient's room so no construction mgr visit completed.
--- NOTE | 2022-11-09 18:48 | NUR ---
REPORT GIVEN TO MIGUEL A FONSECA
--- NOTE | 2022-11-10 01:45 | NUR ---
PATIENT IS LAYING SUPINE IN BED. ASSESSMENT COMPLETED. GIVEN NIGHTLY MEDICATIONS. BLE 3-4+ EDEMA, RED, AND PAINFUL. THERE IS NO PLAN FOR EGD PER PATIENT PREFERENCE. GIVEN OXYCODONE 1X FOR BLE 7/10 PAIN. CONTINUES IN CONTACT PRECAUTIONS FOR HISTORY OF MRSA. SCD'S NOT PLACED. BED IN LOWEST POSITION. SHE QUESTIONED HAVING TO TAKE LACTULOSE, THIS NURSE EDUCATED THE IMPORTANCE WITH HAVING LIVER CIRRHOSIS.
[2022-11-10 04:07] VITALS: BP 110/54; PULSE 86; TEMP 99.3
[2022-11-10 06:33] LABS: BASO % 0.5 % (0.0-2.0); EOS # 0.2 K/mm3 (0.0-0.7); EOS % 2.1 % (0.0-4.0); GRAN # 6.2 K/mm3 (1.4-6.5); GRAN % 71.8 % (42.2-75.2); LYMPH # 1.3 K/mm3 (1.2-3.4); MEAN CELL VOLUME 91 fl (80.0-100.0); MEAN CORPUSCULAR HGB CONC 33 g/dl (33.0-37.0); MEAN PLATELET VOLUME 10.2 fl (7.4-10.4); MONO # 0.8 K/mm3 (0.1-0.6); MONO % 9.7 % (1.7-9.3); PLATELET COUNT 160 K/mm3 (130-400); RED BLOOD COUNT 3.02 M/mm3 (4.10-5.30); REDCELL DISTRIBUTION WIDTH-CV 17.4 % (11.5-14.5)
[2022-11-10 06:35] LABS: HEMATOCRIT 27.6 % (37.0-47.0); MEAN CORPUSCULAR HEMOGLOBIN 30 pg (27-31)
[2022-11-10 06:51] LABS: ALBUMIN 1.9 gm/dL (3.5-5.0); BILIRUBIN,TOTAL 2.9 mg/dL (0.2-1.2); CALCIUM 7.5 mg/dL (8.4-10.2); CREATININE, serum 0.68 mg/dL (0.57-1.11); MAGNESIUM 1.6 mg/dL (1.6-2.6); TOTAL PROTEIN 5.7 gm/dL (6.2-8.1)
[2022-11-10 08:10] LABS: PATHOLOGY DIFF REVIEW OK +
[2022-11-10 08:47] VITALS: BP 110/59; PULSE 92; TEMP 98.7
--- NOTE | 2022-11-10 09:14 | NUR ---
Pt awake and laying in bed. Morning medications administered per eMAR. Shift assessment completed. VSS. INT in R forearm patent; no edema or redness. Dressing on RLE redressed per orders. Pt complains of BLE pain with PRN pain medication administered. No further request at this time. Call light within reach. Contact precautions in place.
[2022-11-10] MEDS ORDERED: PROTONIX 40MG T40 MG PO (10:08)
[2022-11-10] MEDS ORDERED: LACTULOSE10 GM/153 PO (10:09)
[2022-11-10] MEDS ORDERED: DOXYCYCLINE HY100 MG PO (10:13)
[2022-11-10] MEDS ORDERED: FOLIC ACID 11 MG/TA1 PO (10:14)
[2022-11-10] MEDS ORDERED: NATURE'S BLEND100 M2 PO (10:14)
[2022-11-10 11:27] VITALS: BP 120/81; PULSE 91; TEMP 98.9
--- NOTE | 2022-11-10 15:30 | NUR ---
Pt discharge instructions given at this time. All questions answered. INT in R forearm discontinued with catheter tip intact. Pt escorted out of facility at this time.
== END 2022-11-10 15:30 | disposition home or self-care (01) | DRG 872 ==
LOC: COL.ER 10:31 → MEDICAL 12:23
PROVIDERS: Internal Medicine Gastroenterology; Physician Assistant; ADMIT Hospitalist
DX: A41.9 Sepsis, unspecified organism (principal); D68.9 Coagulation defect, unspecified; L03.116 Cellulitis of left lower limb; L03.115 Cellulitis of right lower limb; E87.20 Acidosis, unspecified; E87.1 Hypo-osmolality and hyponatremia; K70.30 Alcoholic cirrhosis of liver without ascites; K70.10 Alcoholic hepatitis without ascites; D64.9 Anemia, unspecified; K59.00 Constipation, unspecified; T40.605A Adverse effect of unspecified narcotics, initial encounter; E88.09 Other disorders of plasma-protein metabolism, not elsewhere classified; D69.6 Thrombocytopenia, unspecified; E87.6 Hypokalemia; E87.70 Fluid overload, unspecified; D73.2 Chronic congestive splenomegaly; B95.61 Methicillin susceptible Staphylococcus aureus infection as the cause of diseases classified elsewhere; R06.6 Hiccough; F10.10 Alcohol abuse, uncomplicated; Z90.89 Acquired absence of other organs; Z87.891 Personal history of nicotine dependence
CPT/HCPCS: C9113; J1940; J2270; J2405; J2543; J2765; J3370; J3475; J7040; J7050; Q9967

== ENCOUNTER 2022-11-25 10:21 | Day surgery (SDC) | payer MEDICAID ==
[~2022-11-25] VITALS: Ht 172.7 cm; Wt 65.3 kg
[2022-11-25] MEDS ORDERED: LASIX 40MG TABL40 MG PO (10:55)
[2022-11-25] MEDS ORDERED: BACTROBAN 22GM22 GM NAS (10:56)
[2022-11-25 11:50] VITALS: BP 112/59; PULSE 86; TEMP 98
[2022-11-25 12:05] VITALS: BP 110/74; PULSE 82
[2022-11-25 12:20] VITALS: BP 112/68; PULSE 82
[2022-11-25 12:34] VITALS: BP 115/68; PULSE 91; TEMP 97.9
--- NOTE | 2022-11-25 12:34 | NUR ---
1150- PATIENT RETURNS TO [facility] VIA CART. PT AWAKE AND ALERT. RESPIRATIONS UNLABORED. AMBULATED TO RECLINER CHAIR WITH 2:1 SBA. PT DENIES NAUSEA OR ABDOMINAL PAIN. HOOKED UP TO MONITOR AND VS OBTAINED. CALL LIGHT AT SIDE. 1157- DR. LUCAS IN ROOM SPEAKING WITH PATIENT. 1205- PATIENT TOLERATING PEPSI AND MUFFIN WITHOUT NAUSEA OR DIFFICULTY SWALLOWING. 1220- D/C INSTRUCTIONS REVIEWED WITH PATIENT. PT VERBALIZED UNDERSTANDING AND A COPY OF INSTRUCTIONS PROVIDED IN D/C FOLDER. 1225- PICC LINE FLUSHED WITH 10ML NS. 1226- PATIENT DRESSES SELF. 1234- PATIENT DISCHARGED FROM UNIT VIA W/C TO A PERSONAL VEHICLE. PT LEFT HOSPITAL IN STABLE CONDITION.
== END 2022-11-25 12:34 | disposition home or self-care (01) ==
LOC: SDCO 10:21
DX: K29.50 Unspecified chronic gastritis without bleeding (principal); K70.30 Alcoholic cirrhosis of liver without ascites; I85.00 Esophageal varices without bleeding; K76.6 Portal hypertension; L03.119 Cellulitis of unspecified part of limb; D68.9 Coagulation defect, unspecified; D64.9 Anemia, unspecified; D69.6 Thrombocytopenia, unspecified; K59.00 Constipation, unspecified; E88.09 Other disorders of plasma-protein metabolism, not elsewhere classified; R16.1 Splenomegaly, not elsewhere classified; Z87.891 Personal history of nicotine dependence
CPT/HCPCS: J2704; J3010; J7120

== ENCOUNTER → 2022-11-25 | Outpatient (RCR) | payer MEDICAID ==
[2022-11-16 08:14] VITALS: BP 113/60; BP 119/75; PULSE 70; PULSE 80; TEMP 98.1; TEMP 98.8
--- NOTE | 2022-11-17 08:15 | NUR ---
SERGEI MAZARIEGOS IN TO ASSESS RIGHT ARM.EDEMA OBSERVED ON LOWER EXTREMITY.
[2022-11-17 08:25] VITALS: BP 115/75; PULSE 88; TEMP 98.2
[2022-11-17 17:49] VITALS: BP 110/74; PULSE 91; TEMP 98.2
[2022-11-18 07:30] VITALS: BP 111/73; PULSE 90; TEMP 98.3
--- NOTE | 2022-11-18 08:15 | NUR ---
SERGEI MAZARIEGOS IN TO ASSESS RIGHT ARM.EDEMA OBSERVED AT RIGHT LOWER EXTREMITY.
--- NOTE | 2022-11-18 12:16 | NUR ---
Pt in express for IV abx, lower right arm edema and warmth present for 2+ days and not improving. Primary provider Dr Cevallos contacted and notified. Order for Right ARm ultrasound requested.
[2022-11-18 17:53] VITALS: BP 113/72; PULSE 90; TEMP 98.3
[2022-11-19 08:09] VITALS: BP 111/75; PULSE 95; TEMP 98.5
[2022-11-19 18:09] VITALS: BP 138/89; PULSE 99; TEMP 98.5
[2022-11-20 07:57] VITALS: BP 116/74; PULSE 91; TEMP 98.3
[2022-11-20 17:50] VITALS: BP 127/86; PULSE 94; TEMP 98.4
[2022-11-21 07:53] VITALS: BP 115/77; PULSE 97; TEMP 98.4
[2022-11-21 17:40] VITALS: BP 117/77; PULSE 102; TEMP 98.4
[2022-11-24 07:55] VITALS: BP 113/69; PULSE 100; TEMP 98.6
[2022-11-24 17:22] VITALS: BP 118/73; PULSE 92; TEMP 98.3
[~2022-11-25] VITALS: Ht 172.7 cm; Wt 66.2 kg
[~2022-11-25] MED LIST changes: +GRALISE300 MG PO; +K-TAB20; +NEURONTIN300 MG/CAP PO; +TRIAMC 0.1 454; +VANCOMYCIN 11 G/VIA1 IV; +ZOFRAN ODT4 MG PO
[2022-11-25 07:23] VITALS: BP 116/74; PULSE 97; TEMP 98.6
--- NOTE | 2022-11-25 09:55 | NUR ---
Pt was allowed to rest in room 16 during and after vanc infusion. She is scheduled for EGD procedure this morning. She exits dept at this time to register for procedure.
== END | disposition home or self-care (01) ==
LOC: EUO
DX: Z51.81 Encounter for therapeutic drug level monitoring (principal); Z79.899 Other long term (current) drug therapy
CPT/HCPCS: J0692; J3370; J7050

== ENCOUNTER 2022-11-29 16:11 | Outpatient (RCR) | payer MEDICAID ==
[2022-11-26 07:16] VITALS: BP 119/79; PULSE 84; TEMP 98.3
--- NOTE | 2022-11-26 12:57 | NUR ---
Karyn did not receive her evening dose vanco on 11/25. She did call prior, stating she was unable to find a ride yesterday evening.
[2022-11-26 17:57] VITALS: BP 109/69; PULSE 83; TEMP 98.6
[2022-11-27 07:15] VITALS: BP 126/85; PULSE 90; TEMP 97.7
--- NOTE | 2022-11-27 10:03 | NUR ---
Vancomycin Follow-up Pharmacy Note Current regimen: Vancomycin 1 gm IV q12h Vancomycin trough: 6.7 Adjustments: Will increase Vancomycin to 1.5 gm IV q12h. Pharmacy will continue to closely monitor and check a trough on 11/29/22.
[2022-11-27 17:50] VITALS: BP 106/64; PULSE 86; TEMP 98.7
[2022-11-28 07:01] VITALS: BP 99/64; PULSE 83; TEMP 98.6
--- NOTE | 2022-11-28 08:38 | NUR ---
PT STATES FELT A FLUTTER IN EPIGASTRIC AREA WITH FLUSHING OF PICC WITH SALINE, GOOD BLOOD RETURN, IVS CALLED, STATES PT HAD THIS AT INSERTION AND NO INCREASE CONCERNS NOW
[2022-11-28 17:59] VITALS: BP 105/70; PULSE 85; TEMP 98.4
[~2022-11-29] VITALS: Ht 172.7 cm; Wt 66.2 kg
[2022-11-29 08:00] VITALS: BP 111/77; PULSE 78; TEMP 98.2
--- NOTE | 2022-11-29 09:07 | NUR ---
PT STATES THAT SHE BEGAN HAVING ABDOMINAL/STOMACH PAIN LAST NIGHT. DESCRIBES IT CONSISTENT AND UNCOMFORTABLE. ABD PALPATES NORMAL AND NO INCREASED PAIN ON PALPATION. DISCUSSED POSSIBLE SIDE EFFECTS OF VANCOMYCIN AND IF SHE CONTINUES TO BE CONCERNED SHE SHOULD CALL HER PRIMARY OR BE SEEN IN THE ER.
[2022-11-29 16:40] VITALS: BP 125/76; PULSE 105; TEMP 98.2
[2022-11-30 07:24] VITALS: BP 111/71; PULSE 85; TEMP 98.5
[2022-12-01 06:50] VITALS: BP 117/71; PULSE 90; TEMP 99.6
[2022-12-01 17:59] VITALS: BP 110/71; PULSE 82; TEMP 98.1
--- NOTE | 2022-12-02 08:48 | NUR ---
Pt arrived this am as scheduled.Per Alina,Pharmacy pt has had all 14 doses of vanc.Pt has follow up with PCP scheduled.Pt has Lovenox due this evening.Clarified with pharmacy dose is 24 hrs apart.Pt will return for Lovenox this evening.
[2022-12-02 10:52] VITALS: BP 116/75; PULSE 85; TEMP 99.7
--- NOTE | 2022-12-02 10:53 | NUR ---
Pt returned for vancomycin as office sent new orders to continue.
[2022-12-02 18:10] VITALS: BP 107/78; PULSE 80; TEMP 98
[2022-12-03 07:20] VITALS: BP 110/74; PULSE 84; TEMP 99.3
[2022-12-03 17:30] VITALS: BP 114/74; PULSE 93; TEMP 99.2
[2022-12-04 08:22] VITALS: BP 119/80; PULSE 89; TEMP 99.4
[2022-12-04 17:41] VITALS: BP 107/73; PULSE 73; TEMP 97.9
[2022-12-05 09:28] VITALS: TEMP 97.9
--- NOTE | 2022-12-05 09:30 | NUR ---
PT INFUSION FINISHED. DRESSING AND STATLOCK CHANGED.
[2022-12-05 17:40] VITALS: BP 128/78; PULSE 78; TEMP 98
[2022-12-10] MEDS ORDERED: BACTRIM DS 8001 TAB PO (12:11)
[2022-12-10] MEDS ORDERED: CEPHALEXIN500 M1 PO (12:11)
[2022-12-10 12:12] VITALS: BP 123/82; PULSE 87; TEMP 98
--- NOTE | 2022-12-10 12:37 | NUR ---
Pt states she will be going to Dr Cevallos's office this afternoon for lab draw. She has concerns for abcess increasing in size to rt lower leg. She will attempt to have Dr Maguire look at site. She is aware that office may send orders for lovenox to be given in EU until pharmacy is able to fill it for home administration on Thursday. This nurse spoke with Andrez's nurse this morning regardind pt's reported delay in lovenox and need for updated orders/plan for continued PICC care.
--- NOTE | 2022-12-15 16:16 | NUR ---
Pt calls at this time stating she was admitted to [facility] last week on per PCP's advise for further workup. She states her PICC line was DC'd on 12/12/22. This will be communicated to MEHDI Kang RN. Pt states she continues on PO abx and home lovenox injections. [facility] account will be closed as pt no longer has central line.
== END 2022-12-15 16:18 | disposition home or self-care (01) ==
LOC: EUO 11-30 07:00
DX: Z45.2 Encounter for adjustment and management of vascular access device (principal)
CPT/HCPCS: J1650; J3370; J7050

== ENCOUNTER 2024-04-02 08:32 | Emergency (ER) | payer MEDICARE, MEDICAID ==
[~2024-04-02] VITALS: Ht 172.7 cm; Wt 59.1 kg
[2024-04-02 08:37] VITALS: TEMP 98.1
[2024-04-02 09:34] LABS: BASO % 0.7 % (0.0-2.0); EOS # 0.1 K/mm3 (0.0-0.7); EOS % 2.3 % (0.0-4.0); GRAN % 63.4 % (42.2-75.2); HEMOGLOBIN 12.3 g/dl (12.5-16.0); LYMPH # 0.6 K/mm3 (1.2-3.4); LYMPH % 19.9 % (20.0-51.0); MEAN CELL VOLUME 91 fl (80.0-100.0); MEAN CORPUSCULAR HEMOGLOBIN 32 pg (27-31); MEAN CORPUSCULAR HGB CONC 35 g/dl (33.0-37.0); MONO # 0.4 K/mm3 (0.1-0.6); MONO % 12.7 % (1.7-9.3); PLATELET COUNT 87 K/mm3 (130-400); RED BLOOD COUNT 3.86 M/mm3 (4.10-5.30); REDCELL DISTRIBUTION WIDTH-CV 14.3 % (11.5-14.5)
[2024-04-02] MEDS ORDERED: TRI-LO-SPRINTE1 EACH PO (09:51)
[2024-04-02 10:03] VITALS: BP 113/87; PULSE 79
== END 2024-04-02 10:15 | disposition home or self-care (01) ==
LOC: COL.ER 08:32
PROVIDERS: Personal Emergency Response Attendant
DX: N92.0 Excessive and frequent menstruation with regular cycle (principal); Z87.891 Personal history of nicotine dependence